=== PATIENT | male | born 1965 | race Caucasian/White ===

== ENCOUNTER 2024-06-23 09:38 | Emergency (ER) | payer SELFPAY ==
[2024-06-23] VITALS (7 sets, daily range): BP systolic 148–183; BP diastolic 62–91; BMI 32.1
[2024-06-23] MEDS: NSS 1000 IV ×3 (11:32→15:15)
[2024-06-23] MEDS: ZOFRAN 4 MG IV ×2 (11:32→14:20)
[2024-06-23 11:54] LABS: % Basophils 0.7 % (0-2); % Eosinophils 0.5 % (0-6); % Immature Granulocytes 0.3 % (0-0.5); % Lymphocytes 16.3 % (20.5-51.1); % Monocytes 6.6 % (1.7-9.3); % Neutrophils 75.6 % (42.2-75.2); Absolute Basophils 0.1 10^3/uL (0-0.2); Absolute Lymphocytes 1.2 10^3/uL (1.2-3.4); Absolute Monocytes 0.5 10^3/uL (0.1-0.6); Absolute Neutrophils 5.7 10^3/uL (1.4-6.5); Hematocrit 44.2 % (39.0-52.0); Hemoglobin 15.8 g/dL (13.0-18.0); Mean Corp Hgb Conc. 35.7 g/dL (33.0-37.0); Mean Corpuscular Hgb 30.1 pg (27.0-31.0); Mean Corpuscular Volume 84.2 fL (80.0-94.0); Mean Platelet Volume 9.8 fL (7.4-10.4); Nucleated Red Blood Cells % 0 % (-); Platelet Count 283 10^3/uL (130-400); Red Blood Cell Count 5.25 10^6/uL (4.70-6.10); White Blood Cell Count 7.6 10^3/uL (4.8-10.8)
[2024-06-23 12:08] LABS: ALT (SGPT) 25 U/L (0-50); AST (SGOT) 25 U/L (17-59); Albumin 4.9 g/dl (3.5-5.0); Alkaline Phosphatase 85 U/L (38-126); Blood Urea Nitrogen 19 mg/dl (9-20); Calcium 9.9 mg/dl (8.4-10.2); Carbon Dioxide 28 mmol/L (22-30); Chloride 99 mmol/L (98-107); Estimated Creatinine Clearance 104 ml/min; Glucose 110 mg/dl (70-99); Potassium 4.4 mmol/L (3.5-5.1); Sodium 138 mmol/L (135-145); Total Protein 7.9 g/dl (6.3-8.2); eGFR > 60.00
[2024-06-23 12:31] LABS: Total Bilirubin 0.9 mg/dl (0.2-1.3); Troponin I < 0.012 ng/ml
--- NOTE | 2024-06-23 12:51 | ED.GENMED ---
History of Present Illness
General
Chief Complaint: Fainting/Passed Out
Time Seen by Provider: 06/23/24 10:58
History of Present Illness
History of Present Illness:
58-year-old male with history of hypertension presenting to the emergency department after a syncopal episode with nausea and vomiting. Patient reports symptoms started yesterday. He reports after having multiple episodes of vomiting, had a
syncopal episode. Reports he had similar symptoms in the past, which he attributed to dehydration. He notes that he has been outside a lot, however has been trying to drink fluids. He feels anxious, however denies chest pain or difficulty
breathing. Denies associated abdominal pain. Reports when he had the symptoms in the past, felt better after IV fluids and Zofran. Prior to syncopal episode, denied any chest pain or difficulty breathing. Denies syncopal episodes in the past.
Denies focal weakness or sensory deficits to his extremities. Denies additional acute medical complaints
Past History
Past History
ED Past Medical History: None
ED Past Surgical History: None
Phy Exam
Physical Exam
Physical Exam:
General: Well-appearing, no clinical signs of dehydration, nontoxic and in no acute distress
HEENT: protecting airway
Neck: appears supple
CV: Normal heart rate, regular rhythm, no evidence of cyanosis
Resp: No accessory muscle use, no increased work of breathing, lungs clear to auscultation bilaterally
Abd: Soft and non-distended, no tenderness to palpation, normal bowel sounds
Extremities: No deformities, no swelling, no erythema, pulses and sensation intact
Neuro: alert, no focal neurologic deficit
: deferred
Rectal: deferred
Psych: Normal affect
Skin: Intact
Course
Orders/Labs/Results
Orders:
Orders
06/23/24 09:45
ECG [Electrocardiogram (*1)] Urgent
Reason for Study: Syncope
EKG- Treatment ONCE
06/23/24 11:25
Cardiac Monitoring- Treatment ONCE
IV Insert/Care/Rem.- Treatment PRN
06/23/24 11:28
0.9% Sodium Chloride 1000 ml [Nss] 1,000 ml IV BOLUS
Ondansetron Injectable [Zofran] 4 mg IV NOW STA
06/23/24 11:35
Complete Blood Count/With Diff Urgent
Comprehensive Metabolic Panel Urgent
Troponin I Urgent
06/23/24 14:00
0.9% Sodium Chloride 1000 ml [Nss] 1,000 ml IV BOLUS
Ondansetron Injectable [Zofran] 4 mg IV NOW STA
06/23/24 14:18
COVID-19 Antigen Urgent
Source: Nasal Swab
06/23/24 15:02
0.9% Sodium Chloride 1000 ml [Nss] 1,000 ml IV BOLUS
Abnormal Lab Results
06/23/24
11:35
Neutrophils % 75.6 H %
(42.2-75.2)
Lymphocytes % 16.3 L %
(20.5-51.1)
Glucose 110 H mg/dl
(70-99)
06/23/24 11:35
06/23/24 11:35
Vital Signs
Initial and Last Documented VS:
Initial Vital Signs
Temp Pulse Resp BP Pulse Ox
98.3 F 73 18 168/91 95
06/23/24 09:41 06/23/24 09:41 06/23/24 09:41 06/23/24 09:41 06/23/24 09:41
Last Documented Vital Signs
Temp Pulse Resp BP Pulse Ox
98.3 F 65 19 180/82 98
06/23/24 09:41 06/23/24 15:15 06/23/24 15:15 06/23/24 15:00 06/23/24 15:15
MDM/Problems Addressed
MDM/Problems Addressed:
58-year-old male with history of anxiety and hypertension presenting for nausea, vomiting, syncopal episode. Vital signs on arrival are significant for high blood pressure.
On exam, patient is well-appearing, no acute distress, however does appear anxious. Benign cardiac and pulmonary exam. On abdominal exam, no focal tenderness. No significant signs of severe dehydration. Suspect mild dehydration and vasovagal
syncope, likely from mild volume depletion. EKG obtained, nonischemic, no arrhythmia. No focal neurologic deficits on exam, without concern for central neurologic process. Plan for screening laboratory analysis. Will treat patient with IV fluids
and Zofran and reassess for improvement.
14:00 - Patient's labs are unremarkable. On reassessment, he is reporting symptom improvement, however still feels dehydrated. Will administer additional antiemetic and liter fluids. Will also send COVID test. Plan for discharge with close
interval follow-up with his PCP. Advised continued monitoring of his blood pressure, again with close interval follow-up PCP for medication management. Will prescribe Zofran. Return precautions discussed and patient verbalized understanding.
*EKG
Interpreted by ED Provider?: Yes
EKG Intrepretation Date: 06/23/24
EKG Intrepretation Time: 13:01
Interpretation: normal
Comparison EKG: no changes (02/11/18)
Heart Rate: 57
Rate: bradycardiac
Rhythm: sinus
Nahma: normal axis
QRS Pattern: normal QRS
Ischemia: no ischemia
*Critical Care Note
Total Time (30-74mins, 75-104mins- exclusive of procedures): Not Applicable
ED Attending Note
-
Portions of this chart may have been created with voice recognition software.� Occasional wrong word or��sound alike� substitutions may have occurred due to the inherent limitations of voice recognition software.
Discharge Plan
Departure
Patient Disposition: Home (Routine Discharge)
Date of Disposition: 06/23/24
Time of Disposition: 14:56
Patient with high blood pressure during this ER visit?: Yes
Condition: Good
Discharge Problem:
Nausea and vomiting
Instructions: Syncope (Fainting) (DC), Dehydration, Adult ED, Nausea and vomiting in adults
Prescriptions:
New
ondansetron 4 mg Tablet,Disintegrating
4 mg PO TIDPRN PRN (Reason: nausea/vomiting) Qty: 6 0RF
No Action
oxycodone 30 MG tablet
30 mg PO QID
ondansetron 4 MG tablet,disintegrating
4 mg PO TIDPRN PRN (Reason: nausea) Qty: 12 0RF
omeprazole 40 MG capsule,delayed release(DR/EC)
40 mg PO DAILY Qty: 30 0RF
Referrals:
Alex Witt MD [Family Provider] -
Stand Alone Forms: Return to Work
Activity Restrictions/Additional Instructions:
You were seen in the emergency department for nausea, vomiting, episode of passing out
You had normal laboratory analysis
Please follow-up closely with your primary care physician.
Return to the emergency department for any worsening of your symptoms, or any development of chest pain, difficulty breathing, abdominal pain with persistent vomiting and inability to tolerate food or liquid by mouth (concern for dehydration),
weakness, headache or confusion, fever greater than 100.4, or any additional symptoms that are concerning to you.
Thank you for choosing [facility].
Interventions
Interventions:
*Risk Screen - Suicide Last Done: 06/23/24 09:41
*General Assessment Last Done: 06/23/24 09:41
*Neglect/Abuse Screening Last Done: 06/23/24 09:41
ED- Fall Risk Assessment Last Done: 06/23/24 11:23
*ED COVID-19 Vaccine History Last Done: 06/23/24 11:23
*Nursing Disposition Last Done: 06/23/24 15:33
ED- Cardiac Assessment Last Done: 06/23/24 11:30
ED- Neurological Assessment Last Done: 06/23/24 11:30
Discharge Date and Time
Discharge Date/Time: 06/23/24 16:09
Print Language: FRENCH
--- NOTE | 2024-06-23 13:05 | EDRN ---
Pt requested desmond anna and Dr. Caldwell okayed it though no desmond anna and pt was administered cup of ice water.
--- NOTE | 2024-06-23 13:05 | EDRN ---
Dr. Caldwell in to see pt.
--- NOTE | 2024-06-23 13:55 | EDRN ---
Pt's spouse asked about a COVID test. Pt still feeling very fatigued, and very weak, 'just not feeling well' pt said, and nausea only 60% gone at this time. Dr. Caldwell informed prior to her entering his room.
--- NOTE | 2024-06-23 13:58 | EDRN ---
Pt states he is feeling real weak and fatigued. Nausea is 60% gone though still present.
--- NOTE | 2024-06-23 14:01 | EDRN ---
Dr. Caldwell in to see pt.
[2024-06-23 14:50] LABS: COVID-19 Antigen Negative (Negative)
--- NOTE | 2024-06-23 15:32 | EDRN ---
Pt is moving to RP #4 to await infusion of final bag of IVF. Discharge plan reviewed w/ pt at this time. Report given to Belia HANEY at this time.
== END 2024-06-23 16:09 | disposition home or self-care (01) ==
LOC: EMR 09:38
PROVIDERS: EMERGENCY PHYSICIAN Student in an Organized Health Care Education/Training Program; FAMILY PHYSICIAN Family Medicine
DX: R55 Syncope and collapse (principal); R11.2 Nausea with vomiting, unspecified; Z11.52 Encounter for screening for COVID-19; I10 Essential (primary) hypertension
CPT/HCPCS: 99284; 96374; 96361 ×3; 96376; 80053; 84484; 85025; 87811; 93005

== ENCOUNTER 2025-01-20 22:57 | Inpatient (IN) | payer BC, SELFPAY ==
[2025-01-20 19:59] LABS: % Basophils 0.3 % (0-2); % Eosinophils 0.2 % (0-6); % Immature Granulocytes 0.2 % (0-0.5); % Lymphocytes 9.3 % (20.5-51.1); % Monocytes 4.8 % (1.7-9.3); % Neutrophils 85.2 % (42.2-75.2); Absolute Lymphocytes 1.1 10^3/uL (1.2-3.4); Absolute Monocytes 0.6 10^3/uL (0.1-0.6); Absolute Neutrophils 9.9 10^3/uL (1.4-6.5); Hematocrit 44.6 % (39.0-52.0); Hemoglobin 16.1 g/dL (13.0-18.0); Mean Corp Hgb Conc. 36.1 g/dL (33.0-37.0); Mean Corpuscular Hgb 29.9 pg (27.0-31.0); Mean Corpuscular Volume 82.7 fL (80.0-94.0); Mean Platelet Volume 9.5 fL (7.4-10.4); Nucleated Red Blood Cells % 0 % (-); Platelet Count 336 10^3/uL (130-400); Red Blood Cell Count 5.39 10^6/uL (4.70-6.10); Red Cell Dist. Width 12.6 % (11.5-14.5); White Blood Cell Count 11.6 10^3/uL (4.8-10.8)
[2025-01-20] MEDS: ZOFRAN 4 MG IV (20:21)
[2025-01-20] MEDS: NSS 1000 IV (20:21)
[2025-01-20 20:22] LABS: COVID-19 Antigen Negative (Negative)
[2025-01-20] MEDS: PEPCID 20 MG IV (20:22)
[2025-01-20 20:23] LABS: ALT (SGPT) 34 U/L (0-50); AST (SGOT) 34 U/L (17-59); Albumin 4.8 g/dl (3.5-5.0); Alkaline Phosphatase 84 U/L (38-126); Blood Urea Nitrogen 22 mg/dl (9-20); Calcium 9.9 mg/dl (8.4-10.2); Carbon Dioxide 26 mmol/L (22-30); Chloride 98 mmol/L (98-107); Glucose 132 mg/dl (70-99); Lipase 1853 U/L (23-300); Sodium 134 mmol/L (135-145); Total Protein 8.2 g/dl (6.3-8.2); eGFR > 60.00
[2025-01-20 20:25] VITALS: BP 167/73
[2025-01-20 20:25] LABS: Troponin I < 0.012 ng/ml
[2025-01-20 20:26] VITALS: BMI 31.7
[2025-01-20] MEDS: DILAUDID 0.5 MG IV ×2 (20:37→22:42)
--- NOTE | 2025-01-20 20:47 | ED.GENMED ---
History of Present Illness
General
Chief Complaint: Chest Pain
Time Seen by Provider: 01/20/25 19:54
History of Present Illness
History of Present Illness:
59-year-old male presents the emergency department for evaluation of upper abdominal pain. Pain began 2 days ago, radiates toward the chest associated with vomiting. He states he had a similar bout of the symptoms in June 2024 and was treated
with fluids and Zofran improved dramatically. Pain does not radiate toward the back. He does note that he takes frequent NSAIDs for pain control on a nearly daily basis. Denies alcohol or tobacco use at this time. Prior abdominal surgery
includes hernia repair.
Past History
Past History
ED Past Medical History: None
ED Past Surgical History: None
Review of Systems
Review of Systems
Allergies reviewed?: Yes
All Other Systems: ROS reviewed and negative except as documented in HPI and ROS
Phy Exam
Physical Exam
Physical Exam:
GEN: Appears visibly uncomfortable, retching often
Eyes: PERRLA, EOMs intact, no scleral icterus
HENT: NCAT, oral mucosa moist, no JVD, no cervical adenopathy.
Lungs: CTAB, no wheezes, rales, rhonchi, normal chest wall excursion
Cardiac: RRR, no M/R/G, no peripheral edema. Radial pulses 2+ bilat
Abdomen: Soft, nondistended, moderate to severe epigastric and left upper quadrant tenderness
Neuro: AO x 3
MSK: No gross deformity or ecchymosis. No edema. No digital clubbing
Skin: No rashes, petechiae. Normal color, no pallor or jaundice.
Psych: Calm, cooperative, proper hygiene
Scores
Heart Score for Chest Pain Patients
STEMI patient?: Not applicable
Course
Orders/Labs/Results
Orders:
Orders
01/20/25 19:38
Electrocardiogram (*1) Urgent
Reason for Study: Chest Pain
Cardiac Monitoring- Treatment ONCE
EKG- Treatment ONCE
IV Insert/Care/Rem.- Treatment PRN
O2 Therapy [RESP] Urgent
Titrate/Wean O2 to maintain O2 sat greater than (%): 90
Special Instructions: Maintain sats >/=90%
Pulse Ox/spot Check [RESP] Urgent
Quantity: 1
Special Instructions: ON ROOM AIR
01/20/25 19:48
Complete Blood Count/With Diff Urgent
Comprehensive Metabolic Panel Urgent
Lipase Urgent
Troponin I Urgent
01/20/25 19:50
COVID-19 Antigen Urgent
Source: Nasal Swab
Influenza A+B Rapid Molecular Urgent
SYED Source: Nasal Swab
Specimen Description:
01/20/25 19:58
0.9% Sodium Chloride 1000 ml [Nss] 1,000 ml IV BOLUS
Famotidine [Pepcid] 20 mg IV NOW STA
Ondansetron Injectable [Zofran] 4 mg IV NOW STA
01/20/25 20:27
CT Abd/Pel (IV only)-DH only Urgent
Comment:
Reason For Exam: epigastric pain
HYDROmorphone [Dilaudid] 0.5 mg IV NOW STA
01/20/25 21:48
HYDROmorphone [Dilaudid] 0.5 mg IV NOW STA
01/20/25 22:17
Admit/Transfer Patient As Directed
Co-Sign Provider:
Level of Care: Inpatient admission
Assign to:: Medical/Surgical
Physician / Group: zion
Diagnosis: acute pancreatitis
Reason for Hospitalization: acute pancreatitis
Expected length of stay greater than two midnights?: Yes
ELOS- Estimated Length of Stay in days: 3
I certify the patient meets the requirements for IP care: Yes
01/20/25 22:18
PRN Pain Medication Management As Directed
May give lesser potent ordered pain med per pt: Yes
preference::
Protocol:: Medication orders for pain may be administered in a
manner that supports deferring to patient preference
when the pt is:
- Requesting an ordered lesser potent pain medication.
Least to most potent pain medications are defined
as: acetaminophen < NSAID < tramadol < opioids
(morphine, oxycodone, hydromorphone).
- Requesting a lesser dose of the same medication IF
ORDERED.
- Requesting a less intrusive route of administration
if both routes are prescribed by the provider (PO <
IV).
01/20/25 22:20
Code Status As Directed
Resuscitation Status: Full Code
01/21/25 22:32
US Abdomen Complete/Upper Routine
Reason For Exam: abdominal pain
Abnormal Lab Results
01/20/25
19:48
WBC 11.6 H 10^3/uL
(4.8-10.8)
Absolute Neuts (auto) 9.9 H 10^3/uL
(1.4-6.5)
Absolute Lymphs (auto) 1.1 L 10^3/uL
(1.2-3.4)
Neutrophils % 85.2 H %
(42.2-75.2)
Lymphocytes % 9.3 L %
(20.5-51.1)
Sodium 134 L mmol/L
(135-145)
BUN 22 H mg/dl
(9-20)
Glucose 132 H mg/dl
(70-99)
Lipase 1853 H* U/L
(23-300)
01/20/25 19:48
01/20/25 19:48
Vital Signs
Initial and Last Documented VS:
Initial Vital Signs
Temp Pulse Resp Pulse Ox
98.3 F 68 20 98
01/20/25 19:39 01/20/25 19:39 01/20/25 19:39 01/20/25 19:39
Last Documented Vital Signs
Temp Pulse Resp BP Pulse Ox
98.3 F 62 13 167/73 91
01/20/25 19:39 01/20/25 21:00 01/20/25 21:00 01/20/25 20:25 01/20/25 21:00
MDM/Problems Addressed
MDM/Problems Addressed:
Workup reveals markedly elevated lipase consistent with acute pancreatitis. Patient denies alcohol use, although there is mild diffuse intra and extrahepatic biliary ductal dilation he has no transaminitis that would be suspicious for gallstone
pancreatitis. Will admit for further management
*Critical Care Note
Total Time (30-74mins, 75-104mins- exclusive of procedures): Not Applicable
ED Attending Note
-
Portions of this chart may have been created with voice recognition software.� Occasional wrong word or��sound alike� substitutions may have occurred due to the inherent limitations of voice recognition software.
Discharge Plan
Departure
Patient Disposition: Admit
Date of Disposition: 01/20/25
Time of Disposition: 21:49
Admit to: Med/Surg
Presentation/result/management discussed w/ accepting MD/DO: Hospitalist
Discharge Problem:
Acute pancreatitis
Interventions
Interventions:
*Risk Screen - Suicide Last Done: 01/20/25 19:39
*General Assessment Last Done: 01/20/25 19:39
*Neglect/Abuse Screening Last Done: 01/20/25 19:39
*ED- Fall Risk Assessment Last Done: 01/20/25 19:39
*ED COVID-19 Vaccine History Last Done: 01/20/25 19:39
IK-Lxbwod-Rdfvvswygb Assessment Last Done: 01/20/25 20:31
ED- Cardiac Assessment Last Done: 01/20/25 20:31
--- NOTE | 2025-01-20 22:01 | HPS.HSE ---
Addendum entered and electronically signed by Nahum Burkett DO 01/20/25 22:48:
Patient seen and examined independently. Agree with findings and plan as set forth by SIS Paz.
Patient is a 59y M with PMH significant for hypertension who presents to ED complaining of abdominal pain with N/V x 2 days. Patient reports a similar episode several months ago that resolved with medications in the ED. He has no known history
of 'pancreatitis' in the past. He denies any alcohol intake at all. Evaluation in the ED today reveals elevated lipase c/w pancreatitis. No gallstones noted on CT imaging. No typical medication triggers, etc.
Ass:
Acute Pancreatitis
Benign Hypertension
Chronic Left Kidney Displacement
Plan:
Admit for further evaluation and treatment.
NPO, IVFs, pain control and antiemetics.
US in the AM to assess for gallstones.
GI evaluation for additional recommendations.
Follow for clinical improvement and advance diet as tolerated.
Original Note:
Family Physician
-
Family Physician: Alex Witt
Chief Complaint
-
abdominal pain
History of Present Illness
59 year old with PMH for HTN presented with left sided abdominal pain for past two days. today he noticed generalized abdomen today. patient stated nausea and vomiting. he vomited all day today. he has not moved her bowels for two days. denied
fever, chills, chest pain, sob. denied HARRY,dizzy or syncope. denied dysuria or hematuria. he was taking motrin for abdominal pain. he is schedule for infected tooth extraction on Sunday.
upon arrival noted to have elevated lipase level. CT with with the impression of 1. Mild to moderate diffuse intrahepatic biliary dilatation.
2. Mild hepatomegaly.
3. Mild diffuse hepatic steatosis.
4. Severely ptotic and malrotated left kidney.
5. 4.7 mm solid pulmonary nodule in the basilar left lower lobe.
patient received famotidine, Dilaudid, normal saline, Zofran in ER. admitting for further management.
Medical History
Past Medical History
Past Medical History: Reports Other
Additional Past Medical History:
HTN
Past Surgical History: Reports Other
Additional Past Surgical History:
foot surgery
meniscus surgery
hernia repair
eye surgery for lazy eye
Social History
Tobacco: Other (occasional POTs)
Alcohol: None
Drug: None
Family History
Family History: Not pertinent
Allergies / Home Medications
Allergies reflects when Allergies were last updated in [facility].
Home Medications with original date entered in [facility]
Allergy/Medication List:
Allergies
Allergy/AdvReac Type Severity Reaction Status Date / Time
No Known Allergies Allergy Verified 06/23/24 09:41
Home Medications
acetaminophen 500 mg tablet (Tylenol Extra Strength) 1,000 mg PO Q6HPRN PRN mild pain 01/20/25
azelastine 137 mcg (0.1 %) nasal spray 1 spray intranasal DAILYPRN PRN allergies 01/20/25
buprenorphine 8 mg-naloxone 2 mg sublingual film 1 film buccal TID 01/20/25
fluticasone propionate 50 mcg/actuation nasal spray,suspension 1 spray intranasal DAILYPRN PRN allergies 01/20/25
loratadine 10 mg tablet 10 mg PO DAILY 01/20/25
trazodone 50 mg tablet 50 mg PO HSPRN PRN sleep 01/20/25
valsartan 160 mg tablet 160 mg PO DAILY 01/20/25
Review of Systems
-
Constitutional: Reports No Symptoms
EENT: Reports No Symptoms
Respiratory: Reports No Symptoms
Cardiac: Reports No Symptoms
Abdomen/GI: Reports Abdominal Pain, Nausea and Vomiting
: Reports No Symptoms
Musculoskeletal: Reports No Symptoms
Skin: Reports No Symptoms
Neurological: Reports No Symptoms
Endocrine: Reports No Symptoms
Hematologic/Lymphatic: Reports No Symptoms
Psych: Reports No Symptoms
Physical Exam
Vital Signs
Vital Signs
Temp Pulse Resp BP Pulse Ox
98.3 F 68 20 167/73 98
01/20/25 19:39 01/20/25 19:39 01/20/25 19:39 01/20/25 20:25 01/20/25 20:26
Physical Exam
General: Well Developed, Well Nourished and No Apparent Distress
HEENT: NormoCephalic, Moist mucous membranes and Atraumatic
Respiratory: Clear
Cardiac: S1/S2 and Regular Rhythm; No Murmur or Rub
GI: Soft, Non Tender, Non Distended and Normal Bowel Sounds; No Organomegaly
Rectal: Deferred by Provider
Musculoskeletal: No Clubbing, No Cyanosis and No Edema
Skin: No Rash
Neuro: AO x 3 and Nonfocal/grossly intact
Psych: Calm
Laboratory Results
-
01/20/25 19:48
01/20/25 19:48
Laboratory Results
Total Bilirubin 1.0 mg/dl (0.2-1.3) 01/20/25 19:48
AST 34 U/L (17-59) 01/20/25 19:48
ALT 34 U/L (0-50) 01/20/25 19:48
Alkaline Phosphatase 84 U/L (38-126) 01/20/25 19:48
Troponin I < 0.012 ng/ml 01/20/25 19:48
Lipase 1853 U/L (23-300) H* 01/20/25 19:48
Data Reviewed
-
CT Scan: Report Reviewed by me
Lab Data: Labs Reviewed by me
Impression/Plan
-
#acute pancreatitis
-keep patient NPO
-fluids continued for hydration
-wbc 11.6, Lipase 1853
-CT abdomen pelvis with Mild to moderate diffuse intrahepatic biliary dilatation.
2. Mild hepatomegaly.
3. Mild diffuse hepatic steatosis.
4. Severely ptotic and malrotated left kidney.
5. 4.7 mm solid pulmonary nodule in the basilar left lower lobe.
-obtain US of abdomen
-Dilaudid and Zofran prn for n/v/pain
-GI consulted
#pulmonary nodule
-follow up as outpatient
#HTN-valsartan continued
#DVT Prophylaxis
-scd
#CODE status
-full code
[2025-01-21] VITALS (9 sets, daily range): BP systolic 150–188; BP diastolic 60–94; BMI 31.3
--- NOTE | 2025-01-21 00:45 | PTCARENOTE ---
Received patient via stretcher accompanied by ED RN, ambulated self to bed without difficulty. Nursing assessment completed and documented. Oriented to room/facility, call roe within reach, care ongoing.
[2025-01-21] MEDS: TYLENOL 650 MG PO ×3 (00:46→16:55)
[2025-01-21] MEDS: ZOFRAN 4 MG IV ×2 (00:46→12:38)
[2025-01-21] MEDS: LR 1000 IV ×5 (00:47→22:12)
[2025-01-21] MEDS: CLARITIN 10 MG PO (08:01)
[2025-01-21] MEDS: DIOVAN 160 MG PO (08:01)
[2025-01-21] MEDS: NON-FORMULARY ITEM 1 FILM BUCCAL ×3 (08:48→16:53)
[2025-01-21] MEDS: NSS (PRESERVATIVE FREE) 10 ML IV (08:50)
[2025-01-21] MEDS: PROTONIX IV 40 MG IV (08:50)
--- NOTE | 2025-01-21 10:39 | W.PN.HOSP.TC ---
Today's Communication/Plan
-
await GI
would check autoimmune labs
clears
renew IVF
pain control
Assessment / Plan
Assessment / Plan
Pt is a 59 year old male
acute pancreatitis--pt denies ETOH use AND US without stones or dilated ducts--?autoimmune, elevated lipid, meds (?valsartan), other causes--await GI--clears--cont IVF--trend lipase--pain control
pulm nodule--outpt follow up
heart murmur--new? per pt and --will need echo as outpt
essential HTN--valsartan continued for now
?previous drug addiction--cont buccal subutex
DVT Proph--scd
CODE status--full code
Anticipated Discharge: 24 - 48 hours
Subjective/Interval History
-
Date of Service: January 21, 2025
pt c/o headache due to not eating
Objective Data
-
Vital Signs:
max temp for 24 hours
01/21/25
00:36
Temp 98.5 F
Vital Signs
Temp Pulse Resp BP Pulse Ox
98.2 F 60 17 150/70 96
01/21/25 08:00 01/21/25 10:18 01/21/25 08:00 01/21/25 10:18 01/21/25 08:00
I&O
01/20/25 01/21/25 01/22/25
06:59 06:59 06:59
Output Total 400 / 400
Balance -400 / -400
Review of Systems
-
All other systems: Reviewed and negative
Abdomen/GI: Denies Abdominal Pain
Neuro: Reports Headache
Physical Exam
-
General: Well Developed, Well Nourished and No Apparent Distress
HEENT: Normocephalic and Atraumatic; Negative Oxygen
Respiratory: Clear to Auscultation; Negative Wheezes, Rales, Rhonchi or Crackles
Cardiac: Regular Rhythm, S1/S2 and Murmur
GI: Soft, Nontender, Nondistended and Normal Bowel Sounds
Musculoskeletal: No Clubbing, No Cyanosis and No Edema
Neuro: Awake and Alert
Psych: Calm
--- NOTE | 2025-01-21 12:10 | CON.GI ---
Addendum entered and electronically signed by Lilly Solorio DO 01/21/25 15:22:
Patient seen and examined independently of SIS. I agree with her note with my additions below
Antwan is a 59-year-old male with history of hypertension, spinal stenosis, on Suboxone here with acute onset nausea vomiting then abdominal pain. Patient has been taking high doses of Motrin [id number] and recently amoxicillin for tooth pain
and infection for which she is scheduled for surgery on Sunday. He was in his normal state of health then, Sunday night had acute onset nausea then vomiting then hours later abdominal pain. He had barely eaten a piece of food then symptoms
started. He has had no diarrhea and has not moved his bowels in days. He is passing flatus
He vomited multiple times on Sunday into Sunday and points to his pain under his bellybutton. He tells me it is just pain and cannot describe it but his states he said it was burning. The pain was not constant. It did not radiate. He has
not had any nausea vomiting since yesterday and states he is extremely hungry and just wants to eat. The pain is also improving but not resolved. 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
their bed multiple viruses. He denies any fever or chills. Does use marijuana occasionally. He is frustrated because he is using vacation days to be here. Liver enzymes are all normal. Lipase was elevated at 1853. Normal creatinine, platelet
count 336.
Abdomen and pelvis IV contrast was done on 01/20/2025 showing mild to moderate diffuse intrahepatic biliary ductal dilatation, mild hepatomegaly, mild hepatic steatosis. There is mild to moderate diffuse pancreatic parenchymal atrophy and
lipomatosis but no evidence of inflammation or pancreatitis. There is mild circumferential wall thickening in the distal esophagus, the stomach is incompletely distended the duodenum appears normal there is mild fluid distention and wall thickening
in the left upper jejunal small bowel loops. No other small bowel abnormalities. Moderate amount of fecal material throughout the colon.
Patient has never had pancreatitis in his only risk factors would be marijuana use. Does not drink any alcohol. No family history of pancreatitis. His pain is not consistent with pancreatitis as he describes more periumbilical and he is jejunal
inflammation on CT scan which can also cause an elevated lipase
# Nausea vomiting abdominal pain -etiology more likely small bowel inflammation/enteritis from NSAIDs versus infectious
-- No diarrhea so no stool studies to check
-- Supportive care, IV fluids
-- Pancreatitis is less likely. Small bowel inflammation can also cause an elevated lipase, his pain characteristics are not classic and his pancreas is not inflamed on CT scan with IV contrast
-- Will try to slowly advance diet to low residue low-fat
-- Zofran as needed, supportive care
-- If symptoms do not improve or he is unable to tolerated diet would consider repeating imaging with small bowel contrast
Original Note:
Consultation
-
Date/Time Consultation Requested: 01/21/2526
Date/Time Consultation Performed: 01/21/25 1140
Requesting Provider: SIS Paz
Performing Provider: Dr. Solorio/SIS Parks
Reason for Consultation: n/v, abd pain, elevated lipase
Medical History
Chief Complaint / HPI
Chief Complaint: abd pain, n/v
History of Present Illness:
59-year-old male with past medical history of hypertension, seasonal allergies, spinal stenosis, anxiety, current tooth infection on amoxicillin and Motrin presents to the emergency room with nausea/vomiting and abdominal pain. Asked to evaluate
for the same. The patient states that he is currently following with an ENT and had a recent laryngoscopy for nasal drainage. He was prescribed nose sprays like Flonase. He also is battling a tooth infection and is finishing up amoxicillin 500 mg
3 times a day as well as utilizing Motrin 600 mg 4 times a day for the past 4 to 5 days. He states that on Sunday he was working he got a sausage egg and cheese sandwich he ate this for breakfast and shortly thereafter started with abrupt onset of
nausea and vomiting multiple episodes. Initially it started out as the food then became bilious in nature throughout the day. He states he had at least 7 episodes of this. That night the pain started just above his bellybutton he states it 'felt
like I was on fire'. Vomiting made this sensation feel better as well as Zofran. Trying to taking clear liquids made it worse. The patient had persistence of vomiting and continuation of pain at that point he came to the emergency room for
further evaluation. The patient had no bowel movements since this started. He does pass flatus. He denies any fevers, chills, hematemesis or coffee grounds in his vomit. He does use occasional marijuana with no increase in usage prior to this
event. He denies any other NSAIDs other than the recent Motrin use. He did receive 2 doses of Dilaudid in the emergency room with improvement of pain. 1 dose of Zofran with cessation of symptoms. He denies any recent travel or sick contacts. He
did have an episode of nausea and vomiting similar to this back in June. WBC 11.6, hemoglobin 16.1, hematocrit 44.6, platelets 336, sodium 134, potassium 4.0, chloride 98, CO2 26, BUN 22, creatinine 0.9, glucose 132, total bilirubin 1.0, AST 34,
ALT 34, alk phos 84, lipase 1853, lipid panel pending.
Past Medical History
Past Medical History: Other (Hypertension, seasonal allergies, spinal stenosis, anxiety, current tooth infection)
Past Surgical History: Other (Left inguinal hernia, wisdom teeth extraction, vasectomy, left knee surgery)
Social History
Tobacco: Non-Smoker
Alcohol: None
Drug: Marijuana
Personal:
Living: With Family
Employment: Employed
Family History
Family History: Other (No family history gastrointestinal malignancy or IBD)
Allergies / Home Medications
Allergy/AdvReac Type Severity Reaction Status Date / Time
No Known Allergies Allergy Verified 06/23/24 09:41
�Medication �Instructions �Recorded
acetaminophen 500 mg tablet 1,000 mg PO Q6HPRN PRN mild pain 01/20/25
(Tylenol Extra Strength)
azelastine 137 mcg (0.1 %) nasal 1 spray intranasal DAILYPRN PRN 01/20/25
spray allergies
buprenorphine 8 mg-naloxone 2 mg 1 film buccal TID 01/20/25
sublingual film
fluticasone propionate 50 1 spray intranasal DAILYPRN PRN 01/20/25
mcg/actuation nasal allergies
spray,suspension
loratadine 10 mg tablet 10 mg PO DAILY 01/20/25
trazodone 50 mg tablet 50 mg PO HSPRN PRN sleep 01/20/25
valsartan 160 mg tablet 160 mg PO DAILY 01/20/25
Review of Systems
-
All other systems: A 12 pt ROS was Negative except as stated above in HPI
Vital Signs
Temp Pulse Resp BP Pulse Ox
98.2 F 60 17 150/70 96
01/21/25 08:00 01/21/25 10:18 01/21/25 08:00 01/21/25 10:18 01/21/25 08:00
Physical Exam
Exam
General: No Apparent Distress
HEENT: Anicteric
Respiratory: Clear (mild decreased bases)
Cardiac: Regular Rhythm
GI: Soft, Non Tender, Non Distended and Normal Bowel Sounds (Slightly hyperactive)
Skin: Warm and Dry
Neuro: AO x 3
Psych: Calm
Results
WBC 11.6 10^3/uL (4.8-10.8) H 01/20/25 19:48
Hgb 16.1 g/dL (13.0-18.0) 01/20/25 19:48
Hct 44.6 % (39.0-52.0) 01/20/25 19:48
MCV 82.7 fL (80.0-94.0) 01/20/25 19:48
Plt Count 336 10^3/uL (130-400) 01/20/25 19:48
Absolute Neuts (auto) 9.9 10^3/uL (1.4-6.5) H 01/20/25 19:48
Sodium 134 mmol/L (135-145) L 01/20/25 19:48
Potassium 4.0 mmol/L (3.5-5.1) 01/20/25 19:48
Chloride 98 mmol/L (98-107) 01/20/25 19:48
Carbon Dioxide 26 mmol/L (22-30) 01/20/25 19:48
BUN 22 mg/dl (9-20) H 01/20/25 19:48
Creatinine 0.9 mg/dL (0.7-1.3) 01/20/25 19:48
Calcium 9.9 mg/dl (8.4-10.2) 01/20/25 19:48
Total Bilirubin 1.0 mg/dl (0.2-1.3) 01/20/25 19:48
AST 34 U/L (17-59) 01/20/25 19:48
ALT 34 U/L (0-50) 01/20/25 19:48
Alkaline Phosphatase 84 U/L (38-126) 01/20/25 19:48
Lipase 1853 U/L (23-300) H* 01/20/25 19:48
Diagnostic Image Results:
CT of the abdomen and pelvis with IV contrast only:
IMPRESSION:
1. Mild to moderate diffuse intrahepatic biliary dilatation.
2. Mild hepatomegaly.
3. Mild diffuse hepatic steatosis.
4. Severely ptotic and malrotated left kidney.
5. 4.7 mm solid pulmonary nodule in the basilar left lower lobe
Excerpts from body of CT abdomen and pelvis with IV contrast reading:
'There is mild to moderate diffuse pancreatic parenchymal atrophy and lipomatosis.'
'There is mild circumferential wall thickening in the distal esophagus. The stomach is incompletely distended. The duodenum appears normal. There is mild fluid distention of wall thickening in left upper quadrant jejunal small bowel loops.'
'There is no abnormal small bowel wall thickening or distention. The appendix appears normal. There is a moderate amount of fecal material throughout the transverse colon. There is no abnormal colonic wall thickening.'
Prior GI Procedures:
EGD: Never
Colonoscopy: Approximately 10 years ago at [facility]. Per patient ' normal' records unavailable to myself.
Assessment / Plan
-
59-year-old male with past medical history of hypertension, seasonal allergies, spinal stenosis, anxiety, current tooth infection on amoxicillin and Motrin 600 mg 4 times a day for 5 days presents to the emergency room with nausea/vomiting and
abdominal pain. Asked to evaluate for the same. Sunday he was working he got a sausage egg and cheese sandwich he ate this for breakfast and shortly thereafter started with abrupt onset of nausea and vomiting multiple episodes. Initially it
started out as the food then became bilious in nature throughout the day. He states he had at least 7 episodes of this. That night the pain started just above his bellybutton he states it 'felt like I was on fire'. Vomiting made this sensation
feel better as well as Zofran. Trying to taking clear liquids made it worse. The patient had persistence of vomiting and continuation of pain at that point he came to the emergency room for further evaluation. Denies any hematemesis. No bowel
movement since arrival. Required 2 doses of Dilaudid with cessation of pain. 1 dose of Zofran required. Has been kept n.p.o. Continues on IVF LR at 250 cc/hr. CT of abdomen and pelvis with IV contrast without any signs of pancreatitis on
imaging. Lipase is elevated 1853, CT with mild fluid distention of wall thickening in left upper quadrant jejunal small bowel loops.
Impression:
N/V
Elevated Lipase
--? Enteritis
--PUD from NSAID use
--Pancreatitis, possible although no inflammation on imaging, no ETOH, no gallstones
Mild fluid distention of wall thickening in left upper quadrant jejunal small bowel loops on CT imaging
--? Enteritis as this occurred after Egg, sausage cheese sandwich
Plan:
-For any of the above management would be bowel rest and IVF
-Can decrease IVF rate as patient is on his 3rd liter of IVF since arrival last evening. Will drop to 100 cc/hr.
-Start clears as tolerated
-Await Trig level
-Will obtain repeat CBC and BMP to ensure hemodilution
-Check IgG4 subclasses for completeness
-Start Pantoprazole 40 mg IV daily for now
-If with diarrhea would obtain stool studies
-Add incentive spirometer
-Further recommendations to be forthcoming
-
-
Thank you for consultation and allowing me to participate in the patient's care. Please call the immigration consultant GI physician during the after hours with any questions or concerns.
[2025-01-21] MEDS: DILAUDID 0.5 MG IV ×2 (12:38→20:32)
--- NOTE | 2025-01-21 13:11 | CM ---
Patient seen at bedside with patient . Patient lives with in a 3 story home. Patient has no DME at home and no needs in the past for VN. Patient PCP is Dr. Witt and he uses the [facility] in [place]. Patient complaining of headache and
wanting to eat. Patient plan is home with no needs. CM will continue to follow for discharge planning needs.
Plan; home with no needs pending completed medical assessment/plan
[2025-01-21 14:07] LABS: Blood Urea Nitrogen 17 mg/dl (9-20); Calcium 8.9 mg/dl (8.4-10.2); Carbon Dioxide 32 mmol/L (22-30); Chloride 100 mmol/L (98-107); Estimated Creatinine Clearance > 125 ml/min; Glucose 104 mg/dl (70-99); Lipase 845 U/L (23-300); Sodium 135 mmol/L (135-145); Total Cholesterol 232 mg/dl (50-199); Triglyceride 117 mg/dl (10-149); Triglycerides 117 mg/dl (10-149); Very Low Density Lipoprotein 23 mg/dl (0-30); eGFR > 60.00
[2025-01-21 14:11] LABS: C-Reactive Protein < 5.00 mg/L (0.0-10.00)
[2025-01-21 14:19] LABS: Hematocrit 39.5 % (39.0-52.0); Hemoglobin 13.5 g/dL (13.0-18.0); Mean Corp Hgb Conc. 34.2 g/dL (33.0-37.0); Mean Corpuscular Hgb 29.5 pg (27.0-31.0); Mean Corpuscular Volume 86.4 fL (80.0-94.0); Mean Platelet Volume 9.7 fL (7.4-10.4); Platelet Count 223 10^3/uL (130-400); Red Blood Cell Count 4.57 10^6/uL (4.70-6.10); Red Cell Dist. Width 12.6 % (11.5-14.5); White Blood Cell Count 7.4 10^3/uL (4.8-10.8)
[2025-01-21 15:12] LABS: HDL Cholesterol 46 mg/dl; LDL Cholesterol, Calculated 163 mg/dl
[2025-01-21] MEDS: APRESOLINE 5 MG IV ×3 (15:18→23:35)
[2025-01-21] MEDS: COMPAZINE 5 MG PO (22:36)
[2025-01-22] MEDS: APRESOLINE 5 MG IV ×3 (02:46→10:49)
[2025-01-22 03:05] VITALS: BP 172/84
[2025-01-22] MEDS: NON-FORMULARY ITEM 1 FILM BUCCAL ×2 (03:53→09:17)
[2025-01-22 06:09] VITALS: BP 180/86
[2025-01-22] MEDS: COMPAZINE 5 MG PO (06:22)
[2025-01-22] MEDS: CLARITIN 10 MG PO (07:27)
[2025-01-22] MEDS: PROTONIX IV 40 MG IV (07:27)
[2025-01-22] MEDS: NSS (PRESERVATIVE FREE) 10 ML IV (07:27)
[2025-01-22] MEDS: DIOVAN 160 MG PO (07:28)
[2025-01-22] MEDS: TYLENOL 650 MG PO (07:29)
[2025-01-22 09:11] VITALS: BP 169/79
[2025-01-22] MEDS: COMPAZINE 5 MG IV (09:23)
[2025-01-22] MEDS: LR IV (09:24)
--- NOTE | 2025-01-22 10:25 | CM ---
Patient seen at bedside with physician and patient present. Patient for discharge home with follow up per physician with lining stuffer. CM will continue to follow for discharge planning needs.
Plan; home with no needs anticipated.
--- NOTE | 2025-01-22 10:34 | W.PN.GI.CBS2 ---
Today's Communication / Plan
-
-- discharge per primary team
Assessment / Plan
-
59-year-old male with past medical history of hypertension, seasonal allergies, spinal stenosis, anxiety, current tooth infection on amoxicillin and Motrin 600 mg 4 times a day for 5 days presents to the emergency room with nausea/vomiting and
abdominal pain. Asked to evaluate for the same. Sunday he was working he got a sausage egg and cheese sandwich he ate this for breakfast and shortly thereafter started with abrupt onset of nausea and vomiting multiple episodes. Initially it
started out as the food then became bilious in nature throughout the day. He states he had at least 7 episodes of this. That night the pain started just above his bellybutton he states it 'felt like I was on fire'. Vomiting made this sensation
feel better as well as Zofran. Trying to taking clear liquids made it worse. The patient had persistence of vomiting and continuation of pain at that point he came to the emergency room for further evaluation. Denies any hematemesis. No bowel
movement since arrival. Required 2 doses of Dilaudid with cessation of pain. 1 dose of Zofran required. Has been kept n.p.o. Continues on IVF LR at 250 cc/hr. CT of abdomen and pelvis with IV contrast without any signs of pancreatitis on
imaging. Lipase is elevated 1853, CT with mild fluid distention of wall thickening in left upper quadrant jejunal small bowel loops.
# Nausea vomiting abdominal pain -etiology more likely small bowel inflammation/enteritis from NSAIDs versus infectious
-- No diarrhea so no stool studies to check - no BM 01/19/25
-- Supportive care, IV fluids, tolerating diet well
-- Pancreatitis is less likely. Small bowel inflammation can also cause an elevated lipase, his pain characteristics are not classic and his pancreas is not inflamed on CT scan with IV contrast
-- Zofran as needed, supportive care
-- If symptoms do not improve or he is unable to tolerated diet would consider repeating imaging with small bowel contrast
-- today, patient doing much better. no n/v and minimal to no pain. eating and getting around fine
-- ok for discharge to home
-- avoid NSAIDs, tolerating diet well --> ok for discharge on low residue/low fat diet until all symptoms are better
-- PCP follow up and if any persistent symptoms return to GI outpatient
Subjective
Subjective
Date of Service: January 22, 2025
patient much improved without pain and tolerating diet well
Objective
Data Reviewed
Laboratory Data:
Laboratory Results
Total Bilirubin 1.0 mg/dl (0.2-1.3) 01/20/25 19:48
AST 34 U/L (17-59) 01/20/25 19:48
ALT 34 U/L (0-50) 01/20/25 19:48
Alkaline Phosphatase 84 U/L (38-126) 01/20/25 19:48
Lipase 845 U/L (23-300) H 01/21/25 13:44
Vital Signs and I&O:
Vital Signs
Temp Pulse Resp BP Pulse Ox
97.9 F 69 17 169/79 99
01/22/25 07:26 01/22/25 09:11 01/22/25 07:26 01/22/25 09:11 01/22/25 03:05
I&O
01/21/25 01/22/25 01/23/25
06:59 06:59 06:59
Intake Total 2180 / 2180 200 / 200
Output Total 1650 / 1650
Balance 530 / 530 200 / 200
Physical Exam
Physical Exam
HEENT: Anicteric
Cardiology: Normal Sinus Rhythm
Pulmonary: Clear
GI: Soft, Non Distended, Non Tender (minimal tenderness to palpation) and Normal Bowel Sounds
Extremities: No Edema
Neuro: Non Focal
--- NOTE | 2025-01-22 10:34 | W.PN.HOSP.TC ---
Today's Communication/Plan
-
d/c
Assessment / Plan
Assessment / Plan
Pt is a 59 year old male
acute 'pancreatitis' likely as a result of inflamed jejunum from NSAIDs--pt denies ETOH use AND US without stones or dilated ducts--apprec GI--tolerated diet --OK for d/c
pulm nodule--outpt follow up
heart murmur--new? per pt and --will need echo as outpt
essential HTN--valsartan continued for now
?previous drug addiction--cont buccal subutex
headache--due to caffeine withdrawal--improved after coffee this AM
DVT Proph--scd
CODE status--full code
Anticipated Discharge: Today
Subjective/Interval History
-
Date of Service: January 22, 2025
pt ready to go home
Objective Data
-
Labs:
Laboratory Results
01/22/25
06:00
WBC Pending
Hgb Pending
Hct Pending
Plt Count Pending
Sodium Pending
Potassium Pending
Chloride Pending
Carbon Dioxide Pending
BUN Pending
Creatinine Pending
Glucose Pending
Calcium Pending
Total Bilirubin Pending
AST Pending
ALT Pending
Alkaline Phosphatase Pending
Vital Signs:
max temp for 24 hours
01/22/25
03:05
Temp 98.1 F
Vital Signs
Temp Pulse Resp BP Pulse Ox
97.9 F 69 17 169/79 99
01/22/25 07:26 01/22/25 09:11 01/22/25 07:26 01/22/25 09:11 01/22/25 03:05
I&O
01/21/25 01/22/25 01/23/25
06:59 06:59 06:59
Intake Total 2180 / 2180 200 / 200
Output Total 1650 / 1650
Balance 530 / 530 200 / 200
Review of Systems
-
All other systems: Reviewed and negative
Neuro: Reports Headache (better)
Physical Exam
-
General: Well Developed, Well Nourished and No Apparent Distress
HEENT: Normocephalic and Atraumatic
Respiratory: Clear to Auscultation; Negative Wheezes
Cardiac: Regular Rhythm, S1/S2 and Murmur
GI: Soft, Nontender, Nondistended and Normal Bowel Sounds
Musculoskeletal: No Clubbing, No Cyanosis and No Edema
Neuro: Awake and Alert
Psych: Calm
--- NOTE | 2025-01-22 11:04 | PTCARENOTE ---
MD Brown notified of pts bp of 179/69 hr 69. no new orders, pt is ok to discharge per MD Brown. pt reports his HARRY improved, nausea subsided, abd pain not present and pt tolerated breakfast. spouse at bedside. plan of care continues to be
followed.
--- NOTE | 2025-01-22 14:42 | W.DCSUMMARY ---
Discharge Summary
Discharge Data
Date of Admission: 01/20/25
Date of Discharge: 01/22/25
Total time spent discharging patient (in min): 32
-
Pending Results: No
Hospital Course
Primary care physician : Alex Witt
Principal Discharge diagnosis : Acute 'pancreatitis' as a result of inflamed jejunum, pulmonary nodule, heart murmur
Chronic Discharge diagnosis : Essential hypertension, previous drug addiction?, Headache
Hospital Course : Patient was a 59-year-old male who presented with left-sided abdominal pain for 2 days prior to admission. He noted generalized abdominal pain on the day of admission. He also had nausea and vomiting. He has not moved his bowels
for 2 days. He denied fever, chills, chest pain, shortness of breath. He is scheduled to have a tooth extraction on Sunday and has been taking Motrin as directed. Patient was admitted.
Problem #1: Acute 'pancreatitis' as a result of inflamed jejunum. Patient was admitted and seen in consultation by GI. CAT scan showed an inflamed jejunum as likely the cause of his elevated lipase of 1800. Patient denied any alcohol use and his
ultrasound was without any stones or dilated ducts. Jejunal inflammation was thought to be due to NSAID use. He was not on any antibiotics here. He is improved and tolerating his diet. GI has recommended discharge along with daily MiraLAX.
Problem #2: Pulmonary nodule/heart murmur. Both of these apparently are new and have been incidentally found during this hospitalization. He should have outpatient workup for both.
Problem #3: All other medical issues. These include essential hypertension, possible previous drug addiction, headache. These medical issues were stable during his hospitalization. Medications were continued as able. Headache was due to the
caffeine withdrawal.
Patient is stable for discharge home at this time. If there are any questions regarding this dictation or his hospital stay, please do not hesitate to call. Our office number is [phone].
Time for discharge 32 minutes.
Important imaging findings :
ABDOMINAL ULTRASOUND IMPRESSION:
There is no evidence of cholelithiasis, acute cholecystitis or biliary ductal dilation.
ABDOMINAL/PELVIS CT SCAN IMPRESSION:
1. Mild to moderate diffuse intrahepatic biliary dilatation.
2. Mild hepatomegaly.
3. Mild diffuse hepatic steatosis.
4. Severely ptotic and malrotated left kidney.
5. 4.7 mm solid pulmonary nodule in the basilar left lower lobe.
There is mild circumferential wall thickening in the distal esophagus. The stomach is incompletely distended. The duodenum appears normal. There is mild fluid distention of wall thickening in left upper quadrant jejunal small bowel loops. There is
no upper abdominal ascites or pneumoperitoneum. There is a small fat-containing umbilical hernia.
Discharge Plan
-
Patient Disposition: Home (Routine Discharge)
Discharge Diagnosis/Procedures: Subclinical pancreatitis due to inflammation of the jejunum, pulmonary nodule, new heart murmur, essential hypertension
Condition: Good
Diet: Low Fat
Additional Diets: Advance as tolerated
Activity: As tolerated
Driving Restrictions: As prior to admission
Bathing Restrictions: None
Referrals:
[facility] [Provider Group] (Patient diagnosed with new heart murmur while admitted for pancreatitis/jejunitis--needs outpatient workup)
Alex Witt MD [Family Provider] - in less than 1 week
Lilly Solorio DO [Active] - in four to six weeks
Additional Discharge Medication Instructions:
Take [id number] MiraLAX daily--follow instructions on bottle--this will help keep bowels regular
Prescriptions:
Continued
trazodone 50 mg Tablet
50 mg PO HSPRN PRN (Reason: sleep)
acetaminophen [Tylenol Extra Strength] 500 mg Tablet
1,000 mg PO Q6HPRN PRN (Reason: mild pain)
loratadine 10 mg Tablet
10 mg PO DAILY
valsartan 160 mg Tablet
160 mg PO DAILY
buprenorphine-naloxone 8-2 mg Film
1 film BUCCAL TID
Patient Comments:
01/20/25: last filled 12/31/24 for 90 films over 30 days
azelastine 137 mcg (0.1 %) [place],Non-Aerosol
1 spray INTRANASAL DAILYPRN PRN (Reason: allergies)
fluticasone propionate 50 mcg/actuation [place],Suspension
1 spray INTRANASAL DAILYPRN PRN (Reason: allergies)
sumatriptan succinate
PRN (Reason: migraines)
Patient Comments:
'1 tablet', cannot recall mg dosing
Discharge Orders:
Discharge Patient (As Directed); Ordered 01/22/25
Ordered By: Roseanne Brown
Discharge Date and Time
Discharge Date/Time: 01/22/25 11:43
Print Language: SOMALI
== END 2025-01-22 11:43 | disposition home or self-care (01) | DRG 440 ==
LOC: 1 ACUTE 22:57
PROVIDERS: Nurse Practitioner; Registered Nurse; Student in an Organized Health Care Education/Training Program; ADMITTING PHYSICIAN Hospitalist; ATTENDING PHYSICIAN Internal Medicine; CONSULT PHYSICIAN Internal Medicine; EMERGENCY PHYSICIAN Emergency Medicine; FAMILY PHYSICIAN Family Medicine
DX: K85.90 Acute pancreatitis without necrosis or infection, unspecified (principal); I10 Essential (primary) hypertension; K76.0 Fatty (change of) liver, not elsewhere classified; Q63.2 Ectopic kidney; G90.A Postural orthostatic tachycardia syndrome [POTS]; K04.7 Periapical abscess without sinus; M48.00 Spinal stenosis, site unspecified; F41.9 Anxiety disorder, unspecified; Z11.52 Encounter for screening for COVID-19; K52.9 Noninfective gastroenteritis and colitis, unspecified; T39.395A Adverse effect of other nonsteroidal anti-inflammatory drugs [NSAID], initial encounter; K27.9 Peptic ulcer, site unspecified, unspecified as acute or chronic, without hemorrhage or perforation; K42.9 Umbilical hernia without obstruction or gangrene; E88.2 Lipomatosis, not elsewhere classified
CPT/HCPCS: 74177; 76700; 80048; 80053; 80061; 82787; 83690; 84478; 84484; 85025; 85027; 86038; 86140; 87502; 87811; 93005; 96374; 96375; 99285; Q9967

== ENCOUNTER 2025-05-11 18:14 | Observation (INO) | payer BC, SELFPAY ==
[2025-05-11] VITALS (11 sets, daily range): BP systolic 117–182; BP diastolic 76–96; BMI 31.2; BMI 31.0
--- NOTE | 2025-05-11 09:23 | ED.GENMED ---
History of Present Illness
General
Chief Complaint: Breathing Problem
Source: patient
Exam Limitations: none
Time Seen by Provider: 05/11/25 09:11
History of Present Illness
History of Present Illness:
59-year-old male with history of pancreatitis presents complaining of vomiting since yesterday. He denies any significant abdominal pain. He also has shortness of breath. He has been using inhalers most recently this morning. No prior diagnosis
of asthma but was supposed to receive a pulmonary function test this week. No fevers or sweats. No diarrhea. No other complaints at this time
Past History
Past History
ED Past Medical History: None
ED Past Surgical History: None
Phy Exam
Physical Exam
Physical Exam:
General: Well-appearing male no acute respiratory distress
HEENT: Normocephalic atraumatic
Heart: Regular rate and rhythm
Lungs: Mild wheeze abdomen is soft mildly tender in the epigastric region no guarding or rebound
Extremities: No cyanosis or edema
Scores
Heart Failure Risk
Heart Failure Risk Score: Not Applicable
Course
Orders/Labs/Results
Orders:
Orders
05/11/25 09:10
ECG [Electrocardiogram (*1)] Urgent
Reason for Study: Chest Pain
EKG- Treatment ONCE
05/11/25 09:18
Complete Blood Count/With Diff Urgent
Comprehensive Metabolic Panel Urgent
Lipase Urgent
Troponin I Urgent
05/11/25 09:23
0.9% Sodium Chloride 1000 ml [Nss] 1,000 ml IV BOLUS
Ipratropium/Albuterol Sulfate [Duoneb] 3 ml INH R NOW STA
Ondansetron Injectable [Zofran] 4 mg IV NOW STA
05/11/25 09:24
CR Chest - 2 Views Urgent
Comment:
Reason For Exam: sob
05/11/25 13:11
Ondansetron Injectable [Zofran] 4 mg IV NOW STA
05/11/25 13:59
ECG [Electrocardiogram (*1)] Urgent
Reason for Study: Abdominal Pain
Other Reason for Exam: serial troponin
05/11/25 14:00
EKG- Treatment ONCE
05/11/25 14:05
Troponin I Urgent
05/11/25 14:59
CT Abd/pelvis W Iv Cont Urgent
Comment:
Reason For Exam: abdominal pain, vomiting
0.9% Sodium Chloride 1000 ml [Nss] 1,000 ml IV BOLUS
05/11/25 15:12
HYDROmorphone [Dilaudid] 0.5 mg IV NOW STA
Abnormal Lab Results
05/11/25
09:18
Absolute Neuts (auto) 7.8 H 10^3/uL
(1.4-6.5)
Absolute Lymphs (auto) 1.0 L 10^3/uL
(1.2-3.4)
Neutrophils % 84.9 H %
(42.2-75.2)
Lymphocytes % 11.0 L %
(20.5-51.1)
Glucose 138 H mg/dl
(70-99)
Total Protein 8.5 H g/dl
(6.3-8.2)
05/11/25 09:18
05/11/25 09:18
Vital Signs
Initial and Last Documented VS:
Initial Vital Signs
Temp Pulse Resp BP Pulse Ox
98.1 F 60 16 117/96 100
05/11/25 09:11 05/11/25 09:11 05/11/25 09:11 05/11/25 09:11 05/11/25 09:11
Last Documented Vital Signs
Temp Pulse Resp BP Pulse Ox
98.1 F 67 15 158/79 94
05/11/25 09:11 05/11/25 16:00 05/11/25 16:00 05/11/25 16:00 05/11/25 16:00
MDM/Problems Addressed
Differential Diagnosis Includes:
Vomiting with shortness of breath. Initially EKG showed peaked T waves however this is not new. Will check electrolytes including potassium and lipase. Treat with Zofran and DuoNeb. X-ray pending.
*Pulse Oximetry
SaO2: 100
Oxygen Mode of Delivery: Room air
Patient hypoxic: no
*Critical Care Note
Total Time (30-74mins, 75-104mins- exclusive of procedures): Not Applicable
Update Note
Update Note:
Patient given 2 L of fluid multiple rounds of nausea medicine and pain medicine still with intractable symptoms. This prompted a CT of the abdomen which is negative. Patient is not feeling well. Symptoms unimproved after treatment here will admit
for intractable nausea and abdominal pain
ED Attending Note
-
Portions of this chart may have been created with voice recognition software.� Occasional wrong word or��sound alike� substitutions may have occurred due to the inherent limitations of voice recognition software.
Discharge Plan
Departure
Patient Disposition: Admit
Date of Disposition: 05/11/25
Time of Disposition: 16:25
Presentation/result/management discussed w/ accepting MD/DO: Hospitalist
Discharge Problem:
Intractable nausea, Abdominal pain
Prescriptions:
No Action
trazodone 50 mg Tablet
50 mg PO HSPRN PRN (Reason: sleep)
acetaminophen [Tylenol Extra Strength] 500 mg Tablet
1,000 mg PO Q6HPRN PRN (Reason: mild pain)
loratadine 10 mg Tablet
10 mg PO DAILY
valsartan 160 mg Tablet
160 mg PO DAILY
buprenorphine-naloxone 8-2 mg Film
1 film BUCCAL TID
Patient Comments:
01/20/25: last filled 12/31/24 for 90 films over 30 days
azelastine 137 mcg (0.1 %) Percival,Non-Aerosol
1 spray INTRANASAL DAILYPRN PRN (Reason: allergies)
fluticasone propionate 50 mcg/actuation Percival,Suspension
1 spray INTRANASAL DAILYPRN PRN (Reason: allergies)
sumatriptan succinate
PRN (Reason: migraines)
Patient Comments:
'1 tablet', cannot recall mg dosing
Referrals:
Alex Witt MD [Family Provider, Family Practice]
Interventions
Interventions:
*Risk Screen - Suicide Last Done: 05/11/25 09:15
*General Assessment Last Done: 05/11/25 09:15
*Neglect/Abuse Screening Last Done: 05/11/25 09:15
*ED- Fall Risk Assessment Last Done: 05/11/25 15:56
*ED COVID-19 Vaccine History Last Done: 05/11/25 15:56
ED- Cardiac Assessment Last Done: 05/11/25 09:20
ED- Pulmonary Assessment Last Done: 05/11/25 09:20
Discharge Date and Time
Print Language: GERMAN
[2025-05-11 09:26] LABS: Hematocrit 45.1 % (39.0-52.0); Hemoglobin 15.9 g/dL (13.0-18.0); Mean Corp Hgb Conc. 35.3 g/dL (33.0-37.0); Mean Corpuscular Volume 84.8 fL (80.0-94.0); Nucleated Red Blood Cells % 0 % (-); Platelet Count 291 10^3/uL (130-400); Red Cell Dist. Width 12.1 % (11.5-14.5)
[2025-05-11] MEDS: ZOFRAN 4 MG IV ×3 (09:29→19:28)
[2025-05-11] MEDS: NSS 1000 IV ×3 (09:29→19:50)
[2025-05-11] MEDS: DUONEB 3 ML INH (09:29)
[2025-05-11 10:04] LABS: Troponin I 0.018 ng/ml
[2025-05-11 10:06] LABS: ALT (SGPT) 25 U/L (0-50); AST (SGOT) 28 U/L (17-59); Albumin 5.0 g/dl (3.5-5.0); Alkaline Phosphatase 88 U/L (38-126); Blood Urea Nitrogen 17 mg/dl (9-20); Calcium 10.2 mg/dl (8.4-10.2); Carbon Dioxide 28 mmol/L (22-30); Chloride 100 mmol/L (98-107); Estimated Creatinine Clearance 113 ml/min; Glucose 138 mg/dl (70-99); Lipase 88 U/L (23-300); Potassium 3.9 mmol/L (3.5-5.1); Sodium 139 mmol/L (135-145); Total Protein 8.5 g/dl (6.3-8.2); eGFR > 60.00
[2025-05-11 14:54] LABS: Troponin I < 0.012 ng/ml
[2025-05-11] MEDS: DILAUDID 0.5 MG IV (15:31)
--- NOTE | 2025-05-11 16:35 | HPS.HSE ---
Family Physician
-
Family Physician: Alex Witt
Chief Complaint
-
nausea, vomiting and abdominal pain
History of Present Illness
Patient is a 59-year-old male with past medical history significant for hypertension, migraines, pulmonary nodule and heart murmur who presented to [facility] ED for evaluation of nausea, vomiting and abdominal pain. Patient reports nausea and vomiting
started a few days ago and have been persistent since then, the abdominal pain started today and he was unable to describe pain besides, 'it hurts,' when questioned. Patient states he has had no appetite and that when he did try to eat it made the
symptoms worse. Denies constipation but reports no bowel movement in a few days. Denies any fever, chills, cough, shortness of breath, chest pain, diarrhea or urinary symptoms.
Medical History
Past Medical History
Past Medical History: Reports Other
Additional Past Medical History:
hypertension
migraines
pulmonary nodule
heart murmur
Past Surgical History: Reports Other
Additional Past Surgical History:
foot surgery
meniscus surgery
hernia repair
eye surgery for lazy eye
Social History
Tobacco: Other (occasional POTs)
Alcohol: None
Drug: Marijuana (reports smoking marijuana ever-other day)
Personal:
Living: With Family
Employment: Employed
Family History
Family History: Not pertinent
Allergies / Home Medications
Allergies reflects when Allergies were last updated in [facility].
Home Medications with original date entered in [facility]
Allergy/Medication List:
Allergies
Allergy/AdvReac Type Severity Reaction Status Date / Time
No Known Allergies Allergy Verified 05/11/25 09:14
Home Medications
azelastine 137 mcg (0.1 %) nasal spray 2 spray intranasal BID 01/20/25
buprenorphine 8 mg-naloxone 2 mg sublingual film 1 film buccal TID 01/20/25
fluticasone propionate 50 mcg/actuation nasal spray,suspension 2 spray intranasal DAILY 01/20/25
loratadine 10 mg tablet 10 mg PO DAILY 01/20/25
valsartan 160 mg tablet 160 mg PO DAILY 01/20/25
albuterol sulfate 90 mcg/actuation aerosol inhaler 2 puff inhalation R Q4HPRN PRN sob 05/11/25
budesonide-formoterol HFA 160 mcg-4.5 mcg/actuation aerosol inhaler 2 puff inhalation R BID 05/11/25
Review of Systems
-
History Source: Patient
Constitutional: Reports Sleep Disturbance
EENT: Reports No Symptoms
Respiratory: Reports No Symptoms
Cardiac: Reports No Symptoms
Abdomen/GI: Reports Abdominal Pain, Nausea, Vomiting and Anorexia
: Reports No Symptoms
Musculoskeletal: Reports No Symptoms
Skin: Reports No Symptoms
Neurological: Reports No Symptoms
Endocrine: Reports No Symptoms
Hematologic/Lymphatic: Reports No Symptoms
Psych: Reports No Symptoms
Physical Exam
Vital Signs
Vital Signs
Temp Pulse Resp BP Pulse Ox
98.1 F 67 15 158/79 94
05/11/25 09:11 05/11/25 16:00 05/11/25 16:00 05/11/25 16:00 05/11/25 16:00
Physical Exam
General: Well Developed and Well Nourished
HEENT: NormoCephalic, Moist mucous membranes, Atraumatic, Nose Appears Normal and Ears Appear Normal
Respiratory: Clear
Cardiac: S1/S2 and Regular Rhythm
Breast: Deferred by me
GI: Soft, Non Distended and Normal Bowel Sounds
Rectal: Deferred by Provider
Genito-urinary: Deferred by me
Musculoskeletal: No Clubbing, No Cyanosis and No Edema
Skin: IV/Catheter Site
Neuro: Awake, AO x 3 and Nonfocal/grossly intact
Laboratory Results
-
05/11/25 09:18
05/11/25 09:18
Laboratory Results
Total Bilirubin 1.0 mg/dl (0.2-1.3) 05/11/25 09:18
AST 28 U/L (17-59) 05/11/25 09:18
ALT 25 U/L (0-50) 05/11/25 09:18
Alkaline Phosphatase 88 U/L (38-126) 05/11/25 09:18
Troponin I < 0.012 ng/ml D 05/11/25 14:05
Lipase Cancelled 05/11/25 09:23
Data Reviewed
-
Diagnostic Radiology: Report Reviewed by me (CXR: 1. No acute pulmonary process identified radiographically. 2. Multiple very small nodular opacities over the right upper lung as above, possibly old benign calcified granulomas but indeterminate
at radiography. This could be further evaluated with follow-up noncontrast CT nonemergently.)
CT Scan: Report Reviewed by me (Abd/Pel CT: No CT evidence for an acute process in the abdomen or pelvis. Other chronic findings, as detailed above)
Medical Tests (Nuc Med, Echo, EKG etc): Report Reviewed by me (EKG: SINUS BRADYCARDIA)
Lab Data: Labs Reviewed by me
Impression/Plan
-
IMPRESSION/PLAN:
#intractable nausea and vomiting 2/2 hyperemesis from marijuana use vs. enteritis vs. inflamed jejunum
CXR: 1. No acute pulmonary process identified radiographically.
2. Multiple very small nodular opacities over the right upper lung as above, possibly old benign calcified granulomas but indeterminate at radiography. This could be further evaluated with follow-up
noncontrast CT nonemergently.
Abd/Pel CT: No CT evidence for an acute process in the abdomen or pelvis. Other chronic findings, as detailed above.
EKG: SINUS BRADYCARDIA
- Admit to med/surg for observation
- IVF NSS 80cc/hr
- supportive care
- Consider GI consult if no improvement
#hypertension
- continue valsartan
#migraines
- continue PRN sumatriptan
#pulmonary nodule
found incidentally during last hospitalization 01/2025, was recommended to have out patient workup
#heart murmur
found incidentally during last hospitalization 01/2025, was recommended to have out patient workup
Code status: full code
DVT Prophylaxis: lovenox sq
--- NOTE | 2025-05-11 17:32 | W.PN.UPDATE ---
Update Note
Progress Note Update
This is an addendum to H&P written by Elsa Mora on 05/11/2025. �Patient seen and examined independently with COLLIERY CLERK.
59-year-old male past medical history of hypertension, migraines, inflamed jejunum in January, marijuana user presenting with vomiting since yesterday, with diffuse abdominal pain.
Recently admitted for similar symptoms in January attribute to jejunal inflammation essentially treated as acute pancreatitis.
Lipase unremarkable. �CT abdomen pelvis does not show any abnormality or pancreatic inflammation.
Patient with likely marijuana induced hyperemesis versus recurrent enteritis. �Zofran, Dilaudid for pain. �IV fluids. �NPO. �Consider GI if no improvement.
--- NOTE | 2025-05-11 18:16 | PHANOTE ---
05/11/2025, pt. was reluctant to talk to me about his meds.; pt. did not know the names of some of his breathing treatments and nasal sprays; used pharmacy records to compile a list of his meds. but was not able to confirm all of pt.'s meds.
[2025-05-11] MEDS: MORPHINE SULFATE 2 MG IV (19:33)
--- NOTE | 2025-05-11 20:30 | PTCARENOTE ---
[place] texted admitted providers, Remedios Mora and Luis Vides, that pt brought in his buprenorphine films from home. Remedios Abby placed order for pt to receive his buprenorphine. Counted 22 films at the bedside with pt and his
. I walked the films down to pharmacy and counted them with the pharmacist, who also counted 22.
Additionally, notified both providers that the pt declined the lovenox shot this evening. Educated provided to pt for the indication of lovenox to prevent blood clot formation. Pt stated 'I don't care, I don't want the shot, I'll do whatever else'.
No new orders at this time.
[2025-05-11] MEDS: NON-FORMULARY ITEM BUCCAL (21:34)
[2025-05-11] MEDS: COMPAZINE 5 MG IV (21:46)
--- NOTE | 2025-05-11 21:50 | PTCARENOTE ---
Pt asked for more anti-nausea medication. Asked House Provider Marquita Rene and one time dose of IV compazine ordered. Upon administering the medication, pt stated he was nibbling on a sandwich that his gave him. Advised pt that he should be
NPO as that is what the doctor ordered. Pt became agitated and stated 'I know my body and I need to eat, I don't want to get a migraine. I'd rather eat and throw it up than get a migraine.' Pt asked for water. Order states that he's NPO with sips
clears. Water given to pt and advised to take small sips. Again reitered NPO status. House Provider aware.
[2025-05-12] MEDS: MORPHINE SULFATE 2 MG IV ×2 (05:45→09:53)
[2025-05-12] MEDS: DIOVAN 160 MG PO (07:16)
[2025-05-12] MEDS: NON-FORMULARY ITEM 1 FILM BUCCAL ×2 (07:16→15:01)
[2025-05-12] MEDS: ZOFRAN 4 MG IV (07:24)
[2025-05-12 07:30] VITALS: BP 167/74
[2025-05-12] MEDS: NSS 1000 IV ×2 (08:45→20:24)
--- NOTE | 2025-05-12 10:10 | W.PN.HOSP.TC ---
Today's Communication/Plan
-
see outlined plan
Assessment / Plan
Assessment / Plan
Assessment:
Intractable nausea/vomiting
Intractable abdominal pain
- probable hyperemesis from marijuana
- CT without acute abd pathology; but without oral contrast. will re-attempt oral contrast tomorrow
- for pain: 24 hours of Dilaudid then back to Morphine with de-escalation to oxycodone. Note is on Suboxone prescribed by PCP. check UDS.
- prn Zofran
- add Pepcid
- continue IVF while NPO; later can add clears
Essential HTN
- continue ARB
Migraines by history
Hx of Pulm nodule
- outpatient w/u
Hx of Heart murmur
- outpatient w/u
DVT ppx: Lovenox
Code: Full
Anticipated Discharge: Within 24 hours
Subjective/Interval History
-
Date of Service: May 12, 2025
is reporting 08/21 pain and specifically asking for Dilaudid
Objective Data
-
Labs:
Laboratory Results
05/12/25 05/12/25
06:00 08:04
WBC Pending
Hgb Pending
Hct Pending
Plt Count Pending
Sodium Cancelled
Potassium Cancelled
Chloride Cancelled
Carbon Dioxide Cancelled
BUN Cancelled
Creatinine Cancelled
Glucose Cancelled
Calcium Cancelled
Vital Signs:
Vital Signs
Temp Pulse Resp BP Pulse Ox
97.6 F 65 18 167/74 97
05/12/25 07:30 05/12/25 07:30 05/12/25 07:30 05/12/25 07:30 05/12/25 07:30
I&O
05/11/25 05/12/25 05/13/25
06:59 06:59 06:59
Intake Total 960 / 960
Balance 960 / 960
Physical Exam
-
General: No Apparent Distress
HEENT: Normocephalic and Atraumatic
Respiratory: Negative Wheezes
Cardiac: Regular Rhythm and S1/S2
GI: Soft and Tender (to superficial palpation. no masses. no rigidity)
Genito-urinary: No Costovertebral Tender
Neuro: AO x 3
Hematologic / Lymphatic: No Lymphadenopathy
Psych: Calm
Data Reviewed
-
Total Time Spent with Patient (in minutes): 41
Labs: Labs Reviewed by me
[2025-05-12] MEDS: CLARITIN 10 MG PO (11:07)
[2025-05-12] MEDS: NSS (PRESERVATIVE FREE) 8 ML IV ×2 (11:07→20:24)
[2025-05-12] MEDS: PEPCID 20 MG IV ×2 (11:07→20:24)
[2025-05-12] MEDS: TYLENOL 650 MG PO (15:03)
[2025-05-12 15:35] VITALS: BP 172/91
[2025-05-12 23:11] VITALS: BP 157/83
[2025-05-13] MEDS: NON-FORMULARY ITEM BUCCAL (03:20)
[2025-05-13] MEDS: NON-FORMULARY ITEM 1 FILM BUCCAL ×2 (03:26→09:41)
[2025-05-13] MEDS: TYLENOL 650 MG PO (03:29)
[2025-05-13] MEDS: CLARITIN 10 MG PO (03:35)
--- NOTE | 2025-05-13 03:59 | RESPNOTE ---
Called to see pt for 'SOB and cough'. Pt states 'I have it under control now' and refused Albuterol inhaler. Pt appears to be breathing comfortably and no resp distress noted
[2025-05-13 07:25] VITALS: BP 174/76
[2025-05-13 07:49] LABS: Hematocrit 39.9 % (39.0-52.0); Hemoglobin 13.8 g/dL (13.0-18.0); Mean Corp Hgb Conc. 34.6 g/dL (33.0-37.0); Mean Corpuscular Volume 86.0 fL (80.0-94.0); Platelet Count 225 10^3/uL (130-400); Red Cell Dist. Width 11.8 % (11.5-14.5)
[2025-05-13 08:12] LABS: Blood Urea Nitrogen 15 mg/dl (9-20); Calcium 8.7 mg/dl (8.4-10.2); Carbon Dioxide 24 mmol/L (22-30); Chloride 106 mmol/L (98-107); Estimated Creatinine Clearance > 125 ml/min; Glucose 94 mg/dl (70-99); Potassium 3.8 mmol/L (3.5-5.1); Sodium 138 mmol/L (135-145); eGFR > 60.00
[2025-05-13] MEDS: DIOVAN 160 MG PO (08:41)
[2025-05-13] MEDS: PEPCID 20 MG IV (08:41)
[2025-05-13] MEDS: NSS (PRESERVATIVE FREE) 8 ML IV (08:41)
[2025-05-13] MEDS: NSS 1000 IV (08:43)
--- NOTE | 2025-05-13 11:56 | W.PN.HOSP.TC ---
Today's Communication/Plan
-
dc to home
Assessment / Plan
Assessment / Plan
Assessment:
Intractable nausea/vomiting
Intractable abdominal pain
- probable hyperemesis from marijuana
- CT without acute abd pathology
- diet: regular diet
Essential HTN
- continue ARB
Migraines by history
Hx of Pulm nodule
- outpatient w/u
Hx of Heart murmur
- outpatient w/u
DVT ppx: Lovenox
Code: Full
More than 30 minutes spent in discharge including
Final examination of the patient
Summarizing hospital stay
Instructions for continuing care to all relevant caregivers
Preparation of discharge records, prescriptions, and referral forms
Total time spent (in minutes): 41
Anticipated Discharge: Today
Subjective/Interval History
-
Date of Service: May 13, 2025
[place] a [employer] this AM and tolerated
denies pain
Objective Data
-
Labs:
Laboratory Results
05/13/25
06:16
WBC 7.2
Hgb 13.8
Hct 39.9
Plt Count 225 D
Sodium 138
Potassium 3.8
Chloride 106
Carbon Dioxide 24
BUN 15
Creatinine 0.8
Glucose 94
Calcium 8.7 D
Vital Signs:
Vital Signs
Temp Pulse Resp BP Pulse Ox
98.0 F 64 18 174/76 96
05/13/25 07:25 05/13/25 08:41 05/13/25 07:25 05/13/25 08:41 05/13/25 08:45
I&O
05/12/25 05/13/25 05/14/25
06:59 06:59 06:59
Intake Total 960 / 960 1440 / 1440
Balance 960 / 960 1440 / 1440
Physical Exam
-
General: No Apparent Distress
HEENT: Normocephalic and Atraumatic
Respiratory: Negative Wheezes
Cardiac: Regular Rhythm and S1/S2
GI: Soft and Nontender
Genito-urinary: No Costovertebral Tender
Neuro: AO x 3
Hematologic / Lymphatic: No Lymphadenopathy
Psych: Calm
Data Reviewed
-
Total Time Spent with Patient (in minutes): 41
Labs: Labs Reviewed by me
--- NOTE | 2025-05-13 12:01 | W.DS.TRANS ---
DC Summary - Case Finisher
-
Discharge Instructions:
Discharge Diagnosis/Procedures vomiting/abdominal pain - resolved
Diet Regular
Activity As tolerated
Instructions:
Stand-Alone Forms:
Changes to Home Medications: No
Discharge Medications:
DC Medications w/original date entered in [facility]
azelastine 137 mcg (0.1 %) nasal spray 2 spray intranasal BID Allergies 01/20/25
buprenorphine 8 mg-naloxone 2 mg sublingual film 1 film buccal TID Mental Health/Anxiety 01/20/25
fluticasone propionate 50 mcg/actuation nasal spray,suspension 2 spray intranasal DAILY Allergies 01/20/25
loratadine 10 mg tablet 10 mg PO DAILY Allergies 01/20/25
valsartan 160 mg tablet 160 mg PO DAILY Blood Pressure 01/20/25
albuterol sulfate 90 mcg/actuation aerosol inhaler 2 puff inhalation R Q4HPRN PRN sob 05/11/25
budesonide-formoterol HFA 160 mcg-4.5 mcg/actuation aerosol inhaler 2 puff inhalation R BID Lung/Breathing Issues 05/11/25
Home Medication Changes
Pending Results: No
Total time spent discharging patient (in min): 41
== END 2025-05-13 12:52 | disposition home or self-care (01) ==
LOC: 4 EAST ACU 18:14
PROVIDERS: Physician Assistant; ADMITTING PHYSICIAN Hospitalist; ATTENDING PHYSICIAN Internal Medicine; EMERGENCY PHYSICIAN Emergency Medicine; FAMILY PHYSICIAN Family Medicine
DX: R11.2 Nausea with vomiting, unspecified (principal); R06.02 Shortness of breath; R10.9 Unspecified abdominal pain; F12.90 Cannabis use, unspecified, uncomplicated; R00.1 Bradycardia, unspecified; I10 Essential (primary) hypertension; G43.909 Migraine, unspecified, not intractable, without status migrainosus; R91.1 Solitary pulmonary nodule; R01.1 Cardiac murmur, unspecified
CPT/HCPCS: 71046; 74177; 80048; 80053; 80306; 80307; 83690; 84484; 85025; 85027; 93005; 99285; Q9967

== ENCOUNTER 2025-09-19 14:35 | Inpatient (IN) | payer BC, SELFPAY ==
[2025-09-17] VITALS (7 sets, daily range): BP systolic 146–207; BP diastolic 63–110; BMI 31.4
[2025-09-17] MEDS: NSS 1000 IV ×2 (13:16→19:38)
[2025-09-17] MEDS: ZOFRAN 4 MG IV ×2 (13:16→18:07)
--- NOTE | 2025-09-17 13:31 | ED.GENMED ---
History of Present Illness
General
Chief Complaint: Exposure-Chemical
Source: patient
Exam Limitations: none
Time Seen by Provider: 09/17/25 12:56
History of Present Illness
History of Present Illness:
2 days ago at work, patient had exposure to PERC. He works in a chemical plant. The hose that was under high-pressure was taken apart causing a significant amount of fluid to hit his face and eyes. He does not think he ingested it. He
immediately decontaminated. He went home went to bed. 8 hours later he started with recurrent nausea and vomiting. Some mild cough. No shortness of breath no chest pain he has had some muscle cramps also.
Past History
Past History
ED Past Medical History: HTN and Other (Pancreatitis)
ED Past Surgical History: Orthopedic and Other (Inguinal hernia)
Review of Systems
Review of Systems
All Other Systems: Not applicable
Respiratory: Reports cough; Denies trouble breathing
Cardiac: Reports no symptoms
Phy Exam
Physical Exam
Physical Exam:
GENERAL: Alert and oriented. Uncomfortable. Getting cramps in his left lateral flank and at times right flank however nontoxic in appearance.
EYE: Orbits normal.
NECK: Supple, no significant adenopathy.
ENT: Pharynx without erythema
CARDIAC: Regular rate and rhythm without any obvious murmurs.
LUNGS: Clear breath sounds,normal. Occasional rare slight dry cough
ABDOMEN: Soft, without focal tenderness or distention
NEUROLOGICAL: Alert and oriented , grossly non-focal
SKIN: Warm and dry, no rash or lesion, no discoloration, skin intact.
MUSCULOSKELETAL: No edema,no deformity.Good color
PSYCH: Normal and appropriate interaction.
Course
Orders/Labs/Results
Orders:
Orders
09/17/25 13:02
Cardiac Monitoring- Treatment ONCE
IV Insert/Care/Rem.- Treatment PRN
Urinalysis Reflex To Culture Urgent
0.9% Sodium Chloride 1000 ml [Nss] 1,000 ml IV BOLUS
Ondansetron Injectable [Zofran] 4 mg IV NOW STA
Pulse Ox/cont/shift [RESP] Stat
Quantity: 1
09/17/25 13:03
Electrocardiogram (*1) Stat
Reason for Study: Abdominal Pain
EKG- Treatment ONCE
CXR2 [CR Chest - 2 Views ] Urgent
Comment:
Reason For Exam: inhalation PERQ
09/17/25 13:15
Complete Blood Count/With Diff Urgent
Comprehensive Metabolic Panel Urgent
Lipase Urgent
Troponin I Urgent
09/17/25 14:47
Lactated Ringers [Lr] 1,000 ml IV BOLUS
09/17/25 15:11
Urine Drug Abuse Screen Routine
09/17/25 15:29
Admit/Transfer Patient As Directed
Co-Sign Provider:
Level of Care: Observation services
Assign to:: Medical/Surgical
Physician / Group: Yee, Valentin
Diagnosis: hypokalemia, intractable nausea and vomiting, PERC exposure
PRN Pain Medication Management As Directed
May give lesser potent ordered pain med per pt: Yes
preference::
Protocol:: Medication orders for pain may be administered in a
manner that supports deferring to patient preference
when the pt is:
- Requesting an ordered lesser potent pain medication.
Least to most potent pain medications are defined
as: acetaminophen < NSAID < tramadol < opioids
(morphine, oxycodone, hydromorphone).
- Requesting a lesser dose of the same medication IF
ORDERED.
- Requesting a less intrusive route of administration
if both routes are prescribed by the provider (PO <
IV).
09/17/25 15:31
Code Status As Directed
Resuscitation Status: Full Code
09/17/25 15:55
Acetaminophen [Tylenol] 650 mg PO Q4HPRN PRN
Abnormal Lab Results
09/17/25
13:15
Absolute Neuts (auto) 8.6 H 10^3/uL
(1.4-6.5)
Absolute Lymphs (auto) 1.0 L 10^3/uL
(1.2-3.4)
Neutrophils % 84.7 H %
(42.2-75.2)
Lymphocytes % 9.6 L %
(20.5-51.1)
Sodium 132 L mmol/L
(135-145)
Potassium 3.4 L mmol/L
(3.5-5.1)
Chloride 92 L mmol/L
(98-107)
BUN 23 H mg/dl
(9-20)
Glucose 136 H mg/dl
(70-99)
Total Bilirubin 1.5 H mg/dl
(0.2-1.3)
Troponin I 0.035 H* ng/ml
Total Protein 8.8 H g/dl
(6.3-8.2)
Albumin 5.1 H g/dl
(3.5-5.0)
Lipase 441 H U/L
(23-300)
09/17/25 13:15
09/17/25 13:15
Vital Signs
Initial and Last Documented VS:
Initial Vital Signs
Temp Pulse Resp BP Pulse Ox
98.4 F 97 18 184/103 99
09/17/25 12:30 09/17/25 12:30 09/17/25 12:30 09/17/25 12:30 09/17/25 12:30
Last Documented Vital Signs
Temp Pulse Resp BP Pulse Ox
98.4 F 82 17 146/63 98
09/17/25 12:30 09/17/25 13:15 09/17/25 13:15 09/17/25 13:13 09/17/25 13:35
MDM/Problems Addressed
Differential Diagnosis Includes:
Patient with nausea vomiting cramping starting 8 hours after an exposure to PERC. Reviewed with poison control. No significant data on acute exposures to PERC. Most that is on chronic exposures. Would be mostly concerned like a hydrocarbon of
inhalation. However no respiratory distress breath sounds are equal pulse ox is good. We are checking a chest x-ray. Nausea and vomiting chronologically could be related to the exposure. Would also have to consider other etiology given a fairly
recent episode of nausea vomiting. He is holding his left flank but says the cramping is in other spots. Doubt kidney stone. Checking LFTs lipase check urine for blood. Fluids nausea meds.
*Pulse Oximetry
SaO2: 98
Oxygen Mode of Delivery: Room air
Patient hypoxic: no
*EKG
Interpreted by ED Provider?: Yes
Comparison EKG: no changes
Heart Rate: 62
Rate: normal
Rhythm: sinus
Doswell: normal axis
Interval: normal interval
QRS Pattern: left vent hypertrophy
Ischemia: no ischemia
*Critical Care Note
Total Time (30-74mins, 75-104mins- exclusive of procedures): Not Applicable
Data Reviewed
Review of Other/Old Records Reveals: Labs, Records, Testing and Discharge Summary
Update Note
Update Note:
Patient appears improved but still nauseous. Cardiac testing is top normal. Highly doubt a cardiac issue. May be repeated for completeness. Discussed with poison control. All symptomatic treatment. Not totally convinced that the exposure
explains his symptoms. It may be more related to his previous GI issues. Warrants admission fluids nausea meds and observation
ED Attending Note
-
Portions of this chart may have been created with voice recognition software.� Occasional wrong word or��sound alike� substitutions may have occurred due to the inherent limitations of voice recognition software.
Discharge Plan
Departure
Patient Disposition: Admit
Date of Disposition: 09/17/25
Time of Disposition: 14:53
Presentation/result/management discussed w/ accepting MD/DO: Hospitalist
Discharge Problem:
Recurrent vomiting, PERC exposure, Mild hypokalemia
Interventions
Interventions:
*Risk Screen - Suicide Last Done: 09/17/25 12:30
*General Assessment Last Done: 09/17/25 12:30
*Neglect/Abuse Screening Last Done: 09/17/25 12:30
*ED COVID-19 Vaccine History Last Done: 09/17/25 13:21
*ED Influenza Vaccine History Last Done: 09/17/25 13:21
ED-EENT Assessment Last Done: 09/17/25 13:58
ED- Pulmonary Assessment Last Done: 09/17/25 13:58
ED-Skin Assessment Last Done: 09/17/25 13:20
[2025-09-17 13:33] LABS: Hematocrit 44.6 % (39.0-52.0); Hemoglobin 15.6 g/dL (13.0-18.0); Mean Corp Hgb Conc. 35.0 g/dL (33.0-37.0); Mean Corpuscular Volume 85.0 fL (80.0-94.0); Nucleated Red Blood Cells % 0 % (-); Platelet Count 334 10^3/uL (130-400); Red Cell Dist. Width 12.4 % (11.5-14.5)
[2025-09-17 13:41] LABS: ALT (SGPT) 41 U/L (0-50); AST (SGOT) 39 U/L (17-59); Albumin 5.1 g/dl (3.5-5.0); Alkaline Phosphatase 87 U/L (38-126); Blood Urea Nitrogen 23 mg/dl (9-20); Calcium 9.6 mg/dl (8.4-10.2); Carbon Dioxide 28 mmol/L (22-30); Chloride 92 mmol/L (98-107); Glucose 136 mg/dl (70-99); Lipase 441 U/L (23-300); Potassium 3.4 mmol/L (3.5-5.1); Sodium 132 mmol/L (135-145); Total Protein 8.8 g/dl (6.3-8.2); eGFR > 60.00
[2025-09-17 13:49] LABS: Troponin I 0.035 ng/ml
--- NOTE | 2025-09-17 15:07 | HPS.HSE ---
Family Physician
-
Family Physician:
Chief Complaint
-
recurrent nausea and vomiting.
History of Present Illness
HPI
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
- reports 2 days ago at work, patient had exposure to PERC ( Perchloroethylene) to the face
- The hose that was under high-pressure was taken apart causing a significant amount of fluid to hit his face and eyes.
- He does not think he ingested it.
- He immediately decontaminated.
- He went home went to bed- 8 hours later he started with recurrent nausea and vomiting.
ROS:
- Some mild cough.
- No shortness of breath no chest pain
- reports some muscle cramps also.
Medical History
Past Medical History
Past Medical History: Reports Other
Additional Past Medical History:
hypertension
migraines
pulmonary nodule
heart murmur
Past Surgical History: Reports Other
Additional Past Surgical History:
foot surgery
meniscus surgery
hernia repair
eye surgery for lazy eye
Social History
Tobacco: Other (occasional POTs)
Alcohol: None
Drug: Marijuana (reports smoking marijuana ever-other day)
Personal:
Living: With Family
Employment: Employed
Family History
Family History: Not pertinent
Allergies / Home Medications
Allergies reflects when Allergies were last updated in [employer]
Home Medications with original date entered in [employer] [employer]
Allergy/Medication List:
Allergies
Allergy/AdvReac Type Severity Reaction Status Date / Time
No Known Allergies Allergy Verified 05/11/25 09:14
Home Medications
azelastine 137 mcg (0.1 %) nasal spray 2 spray intranasal BID 01/20/25
buprenorphine 8 mg-naloxone 2 mg sublingual film 1 film buccal TID 01/20/25
fluticasone propionate 50 mcg/actuation nasal spray,suspension 2 spray intranasal DAILY 01/20/25
loratadine 10 mg tablet 10 mg PO DAILY 01/20/25
valsartan 160 mg tablet 160 mg PO DAILY 01/20/25
albuterol sulfate 90 mcg/actuation aerosol inhaler 2 puff inhalation R Q4HPRN PRN sob 05/11/25
budesonide-formoterol HFA 160 mcg-4.5 mcg/actuation aerosol inhaler 2 puff inhalation R BID 05/11/25
Review of Systems
-
Constitutional: Reports No Symptoms
EENT: Reports No Symptoms
Respiratory: Reports No Symptoms
Cardiac: Reports No Symptoms
Abdomen/GI: Reports See HPI, Nausea and Vomiting
: Reports No Symptoms
Musculoskeletal: Reports No Symptoms
Skin: Reports No Symptoms
Neurological: Reports No Symptoms
Endocrine: Reports No Symptoms
Hematologic/Lymphatic: Reports No Symptoms
Psych: Reports No Symptoms
Physical Exam
Vital Signs
Vital Signs
Temp Pulse Resp BP Pulse Ox
98.4 F 82 17 146/63 98
09/17/25 12:30 09/17/25 13:15 09/17/25 13:15 09/17/25 13:13 09/17/25 13:35
Physical Exam
General: Well Developed, Well Nourished and No Apparent Distress
HEENT: NormoCephalic, Moist mucous membranes and Atraumatic
Respiratory: Clear
Cardiac: S1/S2 and Regular Rhythm; No Murmur or Rub
GI: Soft, Non Tender, Non Distended and Normal Bowel Sounds; No Organomegaly
Rectal: Deferred by Provider
Musculoskeletal: No Clubbing, No Cyanosis and No Edema
Skin: No Rash
Neuro: Nonfocal/grossly intact
Laboratory Results
-
09/17/25 13:15
09/17/25 13:15
Laboratory Results
Total Bilirubin 1.5 mg/dl (0.2-1.3) H 09/17/25 13:15
AST 39 U/L (17-59) 09/17/25 13:15
ALT 41 U/L (0-50) 09/17/25 13:15
Alkaline Phosphatase 87 U/L (38-126) 09/17/25 13:15
Troponin I 0.035 ng/ml H* 09/17/25 13:15
Lipase 441 U/L (23-300) H 09/17/25 13:15
Data Reviewed
-
Diagnostic Radiology: Report Reviewed by me
Lab Data: Labs Reviewed by me
Old Records: Reviewed
Impression/Plan
-
Vital Signs
Temp Pulse Resp BP Pulse Ox
98.4 F 82 17 146/63 98
09/17/25 12:30 09/17/25 13:15 09/17/25 13:15 09/17/25 13:13 09/17/25 13:35
09/17/25
13:15
WBC 10.1
Hgb 15.6
Sodium 132 L
Potassium 3.4 L
Chloride 92 L
Carbon Dioxide 28
BUN 23 H
Creatinine 0.9
eGFR > 60.00
Glucose 136 H
Calcium 9.6
TB 1.5
Troponin I 0.035 H*
09/17/25
13:15
AST 39
ALT 41
Alkaline Phosphatase 87
Lipase 441 H
Pending UDS
Pending UA
EKG
NORMAL SINUS RHYTHM
MODERATE VOLTAGE CRITERIA FOR LVH, MAY BE NORMAL VARIANT ( R in aVL ,
Sokolow-Hurt )
BORDERLINE ECG
WHEN COMPARED WITH ECG OF 11-May-2025 14:12,
NO SIGNIFICANT CHANGE WAS FOUND
CXR
No acute cardiopulmonary process.
Stable tiny right upper lobe nodular opacities, likely sequelae of old infection/granulomatous disease.
Last hospitalist admission: 05/11/2025 - 05/13/2025
DISCHARGE DIAGNOSIS: Vomiting/abdominal pain - resolved.
ASSESSMENT & PLAN
Intractable nausea and vomiting : Diff etiology: marijuana use vs. enteritis vs. accidental exposure to PERC
Mildly elevated Lipase. Nl LFTs
AP CT: No CT evidence for an acute process in the abdomen or pelvis. Other chronic findings, as detailed above.
- last THC use was 2 - 3 nigts agp per patient
- Denied ETOH use
- Admit to med/Surg for observation
- check UDS
- supportive car: IV NS, Tyelnol PRN , anti emetics PTN
- Consider GI consult if no improvement
Elevated Lipase with nl LFTs
- suspect due to recurrent emesis
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
Unremarkable EKG for acute ischemia
- Trend TPNI
HX being on Suboxone.
Benign hypertension
- continue valsartan
HX migraines
- continue PRN sumatriptan
Known Pulmonary nodule
found incidentally during last hospitalization 01/2025, was recommended to have out patient workup
DVT Px: LMWH
Full code
OBS MS
[2025-09-17] MEDS: LR 1000 IV (15:17)
[2025-09-17] MEDS: TYLENOL 650 MG PO (16:26)
--- NOTE | 2025-09-17 16:54 | CM ---
Chart reviewed and met with patient at ED bedside
Reviewed and explained OBS form with patient. Pt declined to sign the form ' I am not paying'
[place] and kids
Employed, independent with ADLs
no DME
PCP Alex Witt
RX plan yes
[facility] [address]
no hx of VN or SNF
DCP is to return home no services
CM will continue to follow up for any DCP needs
[2025-09-17 18:39] LABS: Urine Character Clear (Clear)
[2025-09-17 19:13] LABS: Urine Red Blood Cell 0-2 /HPF (0-2); Urine White Cell 0-2 /HPF (0-5)
--- NOTE | 2025-09-17 19:34 | PTCARENOTE ---
Patient arrived from the ED via stretcher. patient AAOx3, VSS. C/o N/V. A little agitated. No complaints of pain. Ambulated into the room without issue. Patient oriented to the room. Call roe is within reach.
[2025-09-17] MEDS: COMPAZINE 10 MG IV (19:38)
[2025-09-17] MEDS: SYMBICORT 160/4.5 MCG INHALER 2 PUFF INH (19:56)
[2025-09-17] MEDS: BENADRYL 12.5 MG IV (20:14)
[2025-09-17 20:54] LABS: Troponin I 0.026 ng/ml
--- NOTE | 2025-09-17 21:48 | W.PN.UPDATE ---
Update Note
Progress Note Update
Late entry: ~1999 pt with complaints of nausea- unrelieved by Zofran- x1 dose of Compazine ordered- NKA. After administration pt was complaining of SOB-� RT�already at beside with scheduled treatments. PTs vital signs were BP 200/106 HR 94 SPO2-
100% on 2L NC. When assessing the pt on the floor- Pt was seated at the side of the bed- with NC on his forehead- he was visibly tachypneic- Lungs were clear throughout- denies any allergies to medications. But states he takes trazodone for anxiety
and sleep if he needs. His complaint to me was a tingling feeling in his teeth that he often feels before emesis. Pt appears visibly anxious at bedside rocking back and forth- Benadryl provided for possible allergic reaction and PRN trazodone
ordered HS. Pt also states he cannot swallow Subutex- pts own med ordered and sent to pharmacy.�
[2025-09-17] MEDS: NON-FORMULARY ITEM 1 FILM BUCCAL (21:58)
--- NOTE | 2025-09-17 22:09 | PTCARENOTE ---
Patient brought medications from home including controlled substance. Medications brought down to pharmacy. Patient acknowledged and signed pharmacy form. 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
[2025-09-18] MEDS: TYLENOL 650 MG PO (03:45)
[2025-09-18] MEDS: NON-FORMULARY ITEM 1 FILM BUCCAL ×3 (06:30→16:55)
[2025-09-18 07:19] VITALS: BP 174/90
[2025-09-18] MEDS: SYMBICORT 160/4.5 MCG INHALER 2 PUFF INH ×2 (08:02→19:27)
[2025-09-18] MEDS: CLARITIN 10 MG PO (08:15)
[2025-09-18] MEDS: DIOVAN 160 MG PO (08:15)
[2025-09-18] MEDS: NSS 1000 IV ×2 (08:15→20:18)
[2025-09-18 09:08] LABS: Blood Urea Nitrogen 19 mg/dl (9-20); Calcium 8.9 mg/dl (8.4-10.2); Carbon Dioxide 31 mmol/L (22-30); Chloride 96 mmol/L (98-107); Estimated Creatinine Clearance 113 ml/min; Glucose 105 mg/dl (70-99); Magnesium 2.2 mg/dl (1.6-2.3); Potassium 3.9 mmol/L (3.5-5.1); Sodium 133 mmol/L (135-145); eGFR > 60.00
[2025-09-18 09:15] LABS: Troponin I 0.029 ng/ml
[2025-09-18 09:31] LABS: Lipase 2317 U/L (23-300)
[2025-09-18] MEDS: OMNIPAQUE 50 ML PO (10:46)
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
[2025-09-18] MEDS: DIOVAN 80 MG PO (13:21)
[2025-09-18] MEDS: ZOFRAN 4 MG IV ×2 (13:34→20:05)
[2025-09-18 13:38] LABS: ALT (SGPT) 35 U/L (0-50); AST (SGOT) 38 U/L (17-59); Albumin 4.5 g/dl (3.5-5.0); Alkaline Phosphatase 69 U/L (38-126); Total Protein 7.6 g/dl (6.3-8.2)
[2025-09-18] MEDS: APRESOLINE 5 MG IV (13:44)
--- NOTE | 2025-09-18 15:12 | CM ---
Addendum entered by Medina Gardner 09/18/25 15:35:
IA completed.Pt lives in 1 story home with 8 steps at the entrance. Lives with and 3 sons. Independent with ADLs and IADs. NO history of DME, home 02, HH or Rehab. No insecurities identified. Confirmed PCP, RX, Insurance and drug coverage. He
is currently employed.
PCP: Alex Gonzalez
Rx: [facility] [place]
Original Note:
Pt continues with vomiting. Continues with IVF. No change in DC plan
Plan: Home with no needs
[2025-09-18 15:15] VITALS: BP 192/90
--- NOTE | 2025-09-18 16:57 | PTCARENOTE ---
Patient refused lovenox. Educated patient on risks.
[2025-09-18 20:35] VITALS: BP 176/89
[2025-09-18] MEDS: TYLENOL 1000 MG PO (21:21)
[2025-09-18] MEDS: XANAX 0.25 MG PO (21:21)
[2025-09-18] MEDS: DILAUDID 2 MG PO (23:48)
[2025-09-18 23:56] VITALS: BP 166/94
[2025-09-19] MEDS: NON-FORMULARY ITEM 1 FILM BUCCAL ×3 (04:54→17:07)
[2025-09-19 04:58] VITALS: BP 164/89
[2025-09-19] MEDS: APRESOLINE 5 MG IV (04:58)
--- NOTE | 2025-09-19 05:53 | PTCARENOTE ---
Pt aaox3 able to make his needs known, pt very anxious at shift change, refused to take the prn xanax in the begining of the shift.Pt wanted dilaudid PO for abdominal pain.MECHANIC RECOVERY aware of pt on Buprenorphine naloxone.Pt was provided with meds as ordered
later & MECHANIC RECOVERY seen pt at bedside &aware of pt refusing BP meds PRN & wants to see how he does with pain meds.Plan of care continued.
[2025-09-19 07:30] VITALS: BP 184/85
[2025-09-19] MEDS: CLARITIN 10 MG PO (08:29)
[2025-09-19] MEDS: DIOVAN 240 MG PO (08:29)
[2025-09-19] MEDS: SYMBICORT 160/4.5 MCG INHALER 2 PUFF INH ×2 (08:58→19:18)
[2025-09-19 09:39] LABS: Glycohemoglobin (HgbA1c) 5.8 % (4.0-5.9)
[2025-09-19 11:41] LABS: Lipase 1172 U/L (23-300)
[2025-09-19 11:42] LABS: ALT (SGPT) 30 U/L (0-50); AST (SGOT) 32 U/L (17-59); Albumin 4.3 g/dl (3.5-5.0); Alkaline Phosphatase 60 U/L (38-126); Blood Urea Nitrogen 14 mg/dl (9-20); Calcium 8.9 mg/dl (8.4-10.2); Carbon Dioxide 27 mmol/L (22-30); Chloride 99 mmol/L (98-107); Estimated Creatinine Clearance 113 ml/min; Glucose 111 mg/dl (70-99); Potassium 4.3 mmol/L (3.5-5.1); Sodium 135 mmol/L (135-145); Total Protein 7.1 g/dl (6.3-8.2); eGFR > 60.00
--- NOTE | 2025-09-19 13:45 | W.PN.GI.CBS2 ---
Today's Communication / Plan
-
.
Assessment / Plan
-
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 Started vomiting after the exposure.
Denies hematemesis. Similar episode in the past (admitted in 01/2025 with GI consult after tooth infection with Motrin or antibiotic use).
Suspect cannabinoid hyperemesis syndrome. His symptoms are similar to prior admission. CT at that time noted mild circumferential wall thickening in the distal esophagus. He returned in 04/[address] abd/pel did not report esophageal
thickening. He admits to daily marijuana use. Has used for years. He also admits hot showers improve symptoms such as nausea. He reports he had EGD few months ago, although I cannot locate such records. He reports his EGD was unremarkable.
Planned to have repeat CT today. Continue with antiemetics. Will clarify/confirm he did have EGD. Otherwise he should have endo eval at some point
Reports feeling much better today. Tolerating regular diet. Abdo CT today. Likely d/c tomorrow.
Total Time Spent with Patient (in minutes): 35
Subjective
Subjective
Date of Service: September 19, 2025
Feeling much better
Objective
Data Reviewed
Laboratory Data:
Laboratory Results
09/17/25 13:15
09/19/25 10:53
Laboratory Results
Magnesium 2.2 mg/dl (1.6-2.3) 09/18/25 08:29
Total Bilirubin 1.0 mg/dl (0.2-1.3) 09/19/25 10:53
AST 32 U/L (17-59) 09/19/25 10:53
ALT 30 U/L (0-50) 09/19/25 10:53
Alkaline Phosphatase 60 U/L (38-126) 09/19/25 10:53
Lipase 1172 U/L (23-300) H* 09/19/25 10:53
Vital Signs and I&O:
Vital Signs
Temp Pulse Resp BP Pulse Ox
98.0 F 62 16 184/85 98
09/19/25 07:30 09/19/25 09:06 09/19/25 09:06 09/19/25 07:30 09/19/25 09:06
I&O
09/18/25 09/19/25 09/20/25
06:59 06:59 06:59
Intake Total 480 / 480 960 / 960
Balance 480 / 480 960 / 960
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
[2025-09-19 15:34] VITALS: BP 177/91
[2025-09-19] MEDS: DIOVAN 80 MG PO (15:39)
[2025-09-19] MEDS: NORVASC 5 MG PO (15:39)
--- NOTE | 2025-09-19 16:41 | PTCARENOTE ---
Patient angry and agitated most of the day. Patient has expressed multiple times his frustration for being in the hospital. Patient agitated each time RN comes into room to take BP, give meds, etc. RN attempted to give emotional support, it appears
patient just wants to be left alone. Patient is tolerating regular diet and an abundance of coca-cola.
--- NOTE | 2025-09-19 17:13 | PTCARENOTE ---
Patient refusing Lovenox injection. Patient states, 'I get up an walk around. No one is sticking a needle in my stomach.' Benefits and risks explained to patient, patient verbalized understanding, but still refuses injection. Physician made aware.
--- NOTE | 2025-09-19 19:09 | PTCARENOTE ---
Patient agreeable to wearing SCD. SCD placed on patient, education provided.
[2025-09-19 20:00] VITALS: BP 160/88
[2025-09-19 23:00] VITALS: BP 170/83
[2025-09-20] MEDS: APRESOLINE 5 MG IV (00:30)
[2025-09-20] MEDS: NON-FORMULARY ITEM 1 FILM BUCCAL ×2 (04:38→10:59)
--- NOTE | 2025-09-20 04:49 | SUR.OPER ---
Pt aaox3 able to make his needs known.Pt doesn't like to be bothered & prefers to sleep.Pt was made aware of pt BP range & prn meds ordered. Pt noncompliant with nursing care at times,angry & irritated when trying to provide care.Pt agreed to prn
hydralazine later but refuses RN to recheck BP later as he wants to sleep.[employer] correctional facility psychiatrist made aware of it.Plan of care continued.
[2025-09-20 07:00] VITALS: BP 171/88
[2025-09-20] MEDS: DIOVAN 320 MG PO (08:00)
[2025-09-20] MEDS: TYLENOL 650 MG PO (08:00)
[2025-09-20] MEDS: CLARITIN 10 MG PO (08:01)
[2025-09-20] MEDS: NORVASC 5 MG PO ×2 (08:01→08:59)
[2025-09-20] MEDS: SYMBICORT 160/4.5 MCG INHALER 2 PUFF INH (08:13)
[2025-09-20 13:28] VITALS: BP 139/81
--- NOTE | 2025-09-20 13:42 | W.PN.HOSP.TC ---
Today's Communication/Plan
-
Discharge
Assessment / Plan
Assessment / Plan
59-year-old with intractable nausea and vomiting. 2 days prior to arrival he had exposure to PERC horse was under high-pressure and fluid hit his face and eyes. He did not think he ingested it he was becoming dominated immediately. Patient states
that he 8 hours later he started nausea and vomiting.
Chest x-ray-no acute cardiopulmonary process. Stable tiny right upper lobe nodular opacities
EKG sinus rhythm-LVH
Eye-no redness, pupils equal and reactive
CVS: S1-S2 normal
Chest: CTA B/L
Abdomen: Soft, NT , Bowel sounds present
Extremities: No edema
ECHO- Normal left ventricular size and function. Ejection fraction 60-65% by visual estimation. No regional wall motion abnormalities noted. The aortic leaflets are thickened and calcified. mild aortic stenosis. There is mild aortic insufficiency.
Mild mitral valve regurgitation.Trace tricuspid regurgitation. Estimated pulmonary artery pressure of 15 mmHg assuming a right atrial pressure of 3 mmHg.
# Intractable nausea and vomiting
Better
Patient still uses marijuana even though cessation was advised last time when he was discharged after being admitted for nausea and vomiting-urine drug screen reviewed
Symptomatic treatment.
GI evaluated
Check CT scan of the abdomen and pelvis unremarkable pancreas
# Exposure to PERC-I spoke to poison control-[place]. Supportive treatment. It usually causes elevated LFTs if ingested however not pancreatic enzyme elevation
Patient states that he was wearing protective eyeglasses. However I advised him to follow-up with an multimedia authoring specialist
# Hypokalemia-Resolved
# Slightly elevated lipase-likely secondary to emesis, but since was high get a Ct A/P
# Borderline knwzhxce-cyt-VW troponin elevation-trended down. ECHO- as above. Patient is aware about TR, MR, aortic stenosis. Aware about cardiology evaluation and stress test to be done as outpatient.
# Hypertension-continue valsartan. Blood pressure was elevated. Increase valsartan to 320 mg daily. Added 10 mg Norvasc .
# Asthma-continue budesonide-formoterol inhaler and as needed albuterol if symptoms occur
# History of pulmonary nodule-was recommended outpatient follow-up. Pt made aware
# Migraine-continue as needed sumatriptan
# Insomnia-on trazodone as needed
# Suboxone maintenance
# Hepatic steatosis per previous CT
# Active smoker-cessation counseling
# Marijuana use-needs to stop with recurrent vomiting
# Obesity per BMI criteria
# DVT prophylaxis-Lovenox
# Full code
Follow up care discussed
Sent message to GI and Cardiology office for OP appt
D/W RN
More than 30 minutes spent in discharge including
Final examination of the patient
Summarizing hospital stay
Instructions for continuing care to all relevant caregivers
Preparation of discharge records, prescriptions, and referral forms
Part of this note was created using voice recognition system. Occasional wrong word or��sound alike� substitutions may have inadvertently occurred due to the inherent limitations of voice recognition software. If noted kindly bring it to my
attention for correction.
Anticipated Discharge: Today
Subjective/Interval History
-
Date of Service: September 20, 2025
Objective Data
-
Vital Signs:
Vital Signs
Temp Pulse Resp BP Pulse Ox
97.9 F 76 16 139/81 95
09/20/25 07:00 09/20/25 13:28 09/20/25 08:16 09/20/25 13:28 09/20/25 08:16
I&O
09/19/25 09/20/25 09/21/25
06:59 06:59 06:59
Intake Total 960 / 960 660 / 660 1160 / 1160
Balance 960 / 960 660 / 660 1160 / 1160
--- NOTE | 2025-09-20 13:44 | W.DS.TRANS ---
Addendum entered and electronically signed by María Hinson MD 09/20/25 14:55:
Dictation- [id number]
Original Note:
DC Summary - Shift Engineer
-
Discharge Instructions:
Discharge Diagnosis/Procedures Intractable nausea and vomiting
Exposure to PERC recently
Elevated lipase
Poorly controlled Hypertension
Valvular heart disease-mild aortic stenosis,
mild mitral regurgitation, mild tricuspid
regurgitation
Asthma
Hypertension
Migraine
Insomnia
Fatty liver
Diet 2 Gram Sodium
Activity As tolerated
Driving Restrictions As prior to admission
Blood Work Lipase 1 week, cmp 1 week ( Script given)
Others Tests Repeat urine analysis with your next doctor's
appointment
Endoscopy as outpatient
weight loss advised.
Instructions:
Stand-Alone Forms:
Changes to Home Medications: Yes
Discharge Medications:
DC Medications w/original date entered in [facility]
buprenorphine 8 mg-naloxone 2 mg sublingual film 1 film buccal TID Mental Health/Anxiety 01/20/25
fluticasone propionate 50 mcg/actuation nasal spray,suspension 2 spray intranasal DAILY Allergies 01/20/25
loratadine 10 mg tablet 10 mg PO DAILY Allergies 01/20/25
albuterol sulfate 90 mcg/actuation aerosol inhaler 2 puff inhalation R Q4HPRN PRN sob 05/11/25
budesonide-formoterol HFA 160 mcg-4.5 mcg/actuation aerosol inhaler 2 puff inhalation R BID Lung/Breathing Issues 05/11/25
trazodone 50 mg tablet 50 mg PO HS PRN sleep 09/17/25
amlodipine 10 mg tablet 10 mg PO DAILY Blood pressure #30 tabs 09/20/25
valsartan 160 mg tablet 320 mg (2 x 160 mg) PO DAILY Blood pressure #30 tabs 09/20/25
Home Medication Changes
valsartan increased
Amlodipine new
Pending Results: No
--- NOTE | 2025-09-20 14:20 | PTCARENOTE ---
Patient ambulating room with a steafy gait. Patient tolerating regular diet. Patient has no c/o nausea, vomiting or abdominal pain. Patient had a headache earlier that resolved with Tylenol. Spouse at bedside, patient is eager to go home. Return to
work slip sent with patient. Patient's own Suboxone returned to him, 17 strips returned.
== END 2025-09-20 15:13 | disposition home or self-care (01) | DRG 897 ==
LOC: 4 EAST ACU 14:35
PROVIDERS: Nurse Practitioner Family; ADMITTING PHYSICIAN Internal Medicine; ATTENDING PHYSICIAN Hospitalist; EMERGENCY PHYSICIAN Emergency Medicine; FAMILY PHYSICIAN Family Medicine; OTHER PHYSICIAN Internal Medicine Gastroenterology
DX: F12.90 Cannabis use, unspecified, uncomplicated (principal); I10 Essential (primary) hypertension; Z77.098 Contact with and (suspected) exposure to other hazardous, chiefly nonmedicinal, chemicals; E87.6 Hypokalemia; R11.16 Cannabis hyperemesis syndrome; Z79.899 Other long term (current) drug therapy; E66.9 Obesity, unspecified; Z68.31 Body mass index [BMI] 31.0-31.9, adult
CPT/HCPCS: 71046; 74177; 80048; 80053; 80076; 80306; 80307; 81003; 81015; 83036; 83690; 83735; 84484; 85025; 93005; 93306; 94640; 96361; 96374; 99285; 99406; Q9967